=== PATIENT | female | born 1995 | race Hispanic/Latino ===

== ENCOUNTER → 2022-09-18 | Outpatient (CLI) | payer MEDICAID, SELFPAY ==
[2022-09-22 03:06] LABS: Chlamydia By Nucleic Acid AMP Negative (Negative)
[2022-09-22 12:44] LABS: Gonococcus By Nucleic Acid AMP Negative (Negative)
[2022-09-24 21:17] LABS: HPV Reflexed? NOT INDICATED
== END | disposition home or self-care (01) ==
PROVIDERS: Visit Provider Obstetrics & Gynecology
DX: Z34.90 Encounter for supervision of normal pregnancy, unspecified, unspecified trimester (principal)
CPT/HCPCS: 87086; 87491; 87591; 88175; G0145

== ENCOUNTER → 2022-11-12 | Outpatient (CLI) | payer MEDICAID, SELFPAY ==
[2022-11-12 10:55] LABS: Absolute Lymphocyte Count 1.53 X10^3/uL (0.83-4.51); Basophil# 0.03 X10^3/uL; Basophil% 0.5 % (0-1); Eosinophil# 0.07 X10^3/uL; Eosinophils% 1.2 % (0-5); Hematocrit 32.1 % (37-47); Lymphocyte # 1.53 X10^3/ul (0.83-4.51); Lymphocyte % 25.5 % (19-41); Mean Corp Hgb Conc 34.3 g/dL (32-36); Mean Corpuscular Hgb 32.6 pg (27.0-32.0); Mean Corpuscular Volume 95.3 fL (81-99); Mean Platelet Vol. 9.4 fl (6.2-12.0); Monocyte# 0.31 X10^3/uL; Monocyte% 5.2 % (0-10); NRBC Flagged by Analyzer 0 % (0-5); Neutrophil # 4.03 X10^3/uL (2.7-7.7); Neutrophil % 66.9 % (47-70); Platelet Count 292 K/mm3 (150-450); RBC Distribution Width CV 13.6 % (11.6-14.6); RBC Distribution Width SD 47.4 fl (35.1-43.9); Red Blood Count 3.37 M/mm3 (4.2-5.4)
[2022-11-12 12:08] LABS: HIV - WCH Non-Reactive (Nonreactive); Hepatitis B Surface Antigen Non-Reactive (Nonreactive); Hepatitis C Antibody Non-Reactive (Nonreactive); Rubella IgG Reactive (Nonreactive); Syphilis Antibodies Non-reactive
== END | disposition home or self-care (01) ==
LOC: LAB 10:31
PROVIDERS: Visit Provider Obstetrics & Gynecology
DX: Z34.90 Encounter for supervision of normal pregnancy, unspecified, unspecified trimester (principal)
CPT/HCPCS: 36415; 85025; 86703; 86762; 86780; 86803; 86850; 86900; 86901; 87340

== ENCOUNTER → 2022-11-24 | Outpatient (CLI) | payer MEDICAID, SELFPAY ==
--- NOTE | 2022-11-24 15:47 | US_ITS ---
STUDY: SECOND AND THIRD TRIMESTER OBSTETRICAL ULTRASOUND REASON FOR EXAM: Female, 27 years old routine survey, anatomy check LMP: 07/07/2022 TECHNIQUE: Transabdominal TECHNICAL QUALITY: Adequate. PRIOR ULTRASOUND: None. FINDINGS: There is a single intrauterine fetus. The fetus is in an transverse lie with the head on the maternal left side. There is demonstrated cardiac activity with a heart rate of 144 bpm. There is a subjectively normal amniotic fluid volume. The largest amniotic fluid pocket measures 4.1 x 4 cm. The placenta is posterior in location and is not low lying. There are Grade 0 placental changes. The cervix measures 4.0 in length. The adnexal regions are not visualized. BIOMETRY: BPD: 4.46 cm: 19 weeks, 3 days HC: 17.34 cm: 19 weeks, 6 days AC: 14.26 cm: 19 weeks, 4 days FL: 3.15 cm: 19 weeks, 5 days age by current US: 19 weeks, 5 days. CIARRA by current US: 04/15/2023. Estimated weight: 306 grams, +/- 46 grams, 28 %. Age by LMP: 20 weeks, 0 days. CIARRA by LMP: 04/13/2023. ANATOMY: Gender: Female Cranium: Normal lateral ventricles. Normal choroid plexus. Normal cerebellum. Normal cisterna magna. Normal face, nose and lips. Chest: Normal 4-chamber heart. Abdomen/Pelvis: Normal diaphragm. Normal stomach. Normal abdominal wall. Normal cord insertion. Normal 3 vessel cord. Normal kidneys. Normal bladder. Spine: Normal cervical spine. Normal thoracic spine. Normal lumbar spine. Normal sacrum. Extremities: Normal bilateral upper extremities. Normal bilateral lower extremities. US/OB Anatomy w/ Transvaginal IMPRESSION: Single live intrauterine at 19 weeks, 5 days by current ultrasound, with CIARRA of 04/15/2023. Heart rate of 144 bpm. No suspicious sonographic findings. Electronically Signed: Yovanny Granda MD at 8:01 EDT ,
== END | disposition home or self-care (01) ==
LOC: OPUS 15:45
PROVIDERS: Visit Provider Nurse Practitioner Women's Health
DX: Z34.90 Encounter for supervision of normal pregnancy, unspecified, unspecified trimester (principal)
CPT/HCPCS: 76805; 76817

== ENCOUNTER → 2023-01-09 | Outpatient (CLI) | payer MEDICAID, SELFPAY ==
[2023-01-09 15:55] LABS: Absolute Lymphocyte Count 1.71 X10^3/uL (0.83-4.51); Absolute Neutrophil Count 4.2 X10^3/uL (2.0-7.7); Basophil# 0.03 X10^3/uL; Basophil% 0.5 % (0-1); Eosinophil# 0.06 X10^3/uL; Eosinophils% 0.9 % (0-5); Hematocrit 34.5 % (37-47); Hemoglobin 11.2 g/dL (12.0-15.0); Lymphocyte # 1.71 X10^3/ul (0.83-4.51); Lymphocyte % 25.9 % (19-41); Mean Corp Hgb Conc 32.5 g/dL (32-36); Mean Corpuscular Hgb 32.7 pg (27.0-32.0); Mean Corpuscular Volume 100.9 fL (81-99); Mean Platelet Vol. 9.9 fl (6.2-12.0); Monocyte# 0.54 X10^3/uL; Monocyte% 8.2 % (0-10); NRBC Flagged by Analyzer 0 % (0-5); Neutrophil # 4.18 X10^3/uL (2.7-7.7); Neutrophil % 63.1 % (47-70); Platelet Count 315 K/mm3 (150-450); RBC Distribution Width CV 13.1 % (11.6-14.6); RBC Distribution Width SD 48.6 fl (35.1-43.9); Red Blood Count 3.42 M/mm3 (4.2-5.4); White Blood Count 6.6 K/mm3 (4.4-11.0)
[2023-01-09 16:39] LABS: Glucose Challenge Gest 1H 50g 103 mg/dL (70-140)
== END | disposition home or self-care (01) ==
PROVIDERS: Referring Provider Obstetrics & Gynecology; Visit Provider Obstetrics & Gynecology
DX: N89.8 Other specified noninflammatory disorders of vagina (principal)
CPT/HCPCS: 36415; 82950; 85025; 87070; 87205

== ENCOUNTER → 2023-01-21 | Outpatient (CLI) | payer MEDICAID, SELFPAY ==
[2023-01-21 16:38] LABS: HIV - WCH Non-Reactive (Nonreactive); Syphilis Antibodies Non-reactive
[2023-01-23 06:09] LABS: HSV 1 IgG < 0.91 index (0.00-0.90); HSV 2 IgG < 0.91 index (0.00-0.90)
== END | disposition home or self-care (01) ==
PROVIDERS: Referring Provider Obstetrics & Gynecology; Visit Provider Obstetrics & Gynecology
DX: O23.599 Infection of other part of genital tract in pregnancy, unspecified trimester (principal); N76.0 Acute vaginitis; Z3A.00 Weeks of gestation of pregnancy not specified
CPT/HCPCS: 36415; 86695; 86696; 86703; 86780

== ENCOUNTER 2023-02-13 16:50 | Outpatient (CLI) | payer MEDICAID, SELFPAY ==
[2023-02-13 17:04] VITALS: TEMP 36.8
[2023-02-13 17:05] VITALS: BP 97/63; PULSE 88
[2023-02-13 17:09] VITALS: BMI 30.9
--- NOTE | 2023-02-13 17:09 | OB.TRI.PN_ITS ---
Progress Notes Date of Service: 02/13/23 Progress Note: Patient presents for triage evaluation secondary to vaginal bleeding FHT: 140 Moderate variability reactive no decelerations category I tracing [place]: no regular Contractions Assessment and plan: vaginal bleeding no dilation labs drawn and WNL Reactive NST, reassuring maternal and status patient discharged to home to follow- up as scheduled. See problem list details for additional plan information. Charges/Coding Procedures Urinary/Genital 52xxx-59xxx: 18606-50 non-stress test Interp
[2023-02-13 17:38] LABS: Absolute Lymphocyte Count 1.45 X10^3/uL (0.83-4.51); Absolute Neutrophil Count 3.2 X10^3/uL (2.0-7.7); Basophil# 0.03 X10^3/uL; Basophil% 0.6 % (0-1); Eosinophil# 0.07 X10^3/uL; Eosinophils% 1.3 % (0-5); Hematocrit 32.2 % (37-47); Hemoglobin 10.9 g/dL (12.0-15.0); Lymphocyte # 1.45 X10^3/ul (0.83-4.51); Lymphocyte % 27.8 % (19-41); Mean Corp Hgb Conc 33.9 g/dL (32-36); Mean Corpuscular Hgb 33.2 pg (27.0-32.0); Mean Corpuscular Volume 98.2 fL (81-99); Mean Platelet Vol. 9.8 fl (6.2-12.0); Monocyte# 0.42 X10^3/uL; NRBC Flagged by Analyzer 0 % (0-5); Neutrophil % 61.3 % (47-70); Platelet Count 263 K/mm3 (150-450); RBC Distribution Width SD 46.1 fl (35.1-43.9); Red Blood Count 3.28 M/mm3 (4.2-5.4); White Blood Count 5.2 K/mm3 (4.4-11.0)
[2023-02-13 17:45] LABS: Fibrinogen 443 mg/dl (203-444)
== END 2023-02-13 18:15 | disposition home or self-care (01) ==
LOC: WPOUT 16:57 → WP 16:58
PROVIDERS: Referring Provider Obstetrics & Gynecology; Visit Provider Obstetrics & Gynecology
DX: O46.90 Antepartum hemorrhage, unspecified, unspecified trimester (principal); Z3A.00 Weeks of gestation of pregnancy not specified
CPT/HCPCS: 36415; 59025; 59050; 85025; 85384; 86850; 86900; 86901; 99221; G0378

== ENCOUNTER → 2023-02-20 | Outpatient (CLI) | payer MEDICAID, SELFPAY ==
--- NOTE | 2023-02-20 16:05 | VDLE_ITS ---
Reason For Study: Left groin swelling Procedure LEFT This is a venous duplex using B-mode, color GSV is normal. flow and spectral Doppler. CFV is compressible, spontaneous, phasic, Exam performed in department. competent, and demonstrates normal A preliminary report was called and/or faxed augmentation. to Dr. Marshall. FV is compressible, spontaneous, phasic, competent and demonstrates normal augmentation. POP V is compressible, spontaneous, phasic, competent and demonstrates normal augmentation. T/P Trunk is compressible. PTV is compressible. LT PerV is compressible. Vascularized structure noted in the left groin area that measures 1.87 x 2.67 x 4.99 cm. VL/Venous Duplex US, Unilateral Interpretation Summary There is no evidence of left lower extremity deep vein thrombosis. Left great s aphenous vein appears patent and compressible segmentally. 1.87 x 2.67 x 4.99 cm left groin vasculari zed structure Ordering Physician: Karrie Roldan Performed By: Judy Medrano RVT
== END | disposition home or self-care (01) ==
PROVIDERS: Visit Provider Obstetrics & Gynecology
DX: M79.605 Pain in left leg (principal)
CPT/HCPCS: 93971

== ENCOUNTER → 2023-03-19 | Outpatient (CLI) | payer MEDICAID, SELFPAY | END | disposition home or self-care (01) | LOC: LABSPEC 16:48 | PROVIDERS: Referring Provider Obstetrics & Gynecology; Visit Provider Obstetrics & Gynecology | DX: O09.90 Supervision of high risk pregnancy, unspecified, unspecified trimester (principal); Z3A.00 Weeks of gestation of pregnancy not specified | CPT/HCPCS: 87081 ==

== ENCOUNTER → 2023-04-02 | Outpatient (CLI) | payer MEDICAID, SELFPAY ==
--- NOTE | 2023-04-02 19:20 | US_ITS ---
STUDY: SUPERFICIAL ULTRASOUND - LEFT INGUINAL AREA REASON FOR EXAM: Female, 27 years old. left inguinal pain/ palp -- DVT previously ruled out/possible lymph node TECHNIQUE: A superficial ultrasound was performed with real-time and static rooney-scale imaging. COMPARISON: None. FINDINGS: Multiple longitudinal and transverse ultrasound images of the left ankle area demonstrates multiple dilated blood vessels possibly consistent with pelvic varices. Correlation with CT abdomen and pelvis with contrast after delivery would be useful. 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 Electronically Signed: Zen Castro MD at 20:41 EDT ,
== END | disposition home or self-care (01) ==
LOC: US 19:20
PROVIDERS: Referring Provider Obstetrics & Gynecology; Visit Provider Obstetrics & Gynecology
DX: R10.9 Unspecified abdominal pain (principal)
CPT/HCPCS: 76882

== ENCOUNTER → 2023-04-16 | Outpatient (CLI) | payer MEDICAID, SELFPAY ==
[2023-04-16 18:04] LABS: ROM Internal Control Test YES-OK TO RESULT pt. (Internal QC); ROM Patient Test Negative (Negative); Record Kit Lot#, ROM+ K1374
== END | disposition home or self-care (01) ==
PROVIDERS: Visit Provider Obstetrics & Gynecology
DX: O26.899 Other specified pregnancy related conditions, unspecified trimester (principal); N89.8 Other specified noninflammatory disorders of vagina; Z3A.00 Weeks of gestation of pregnancy not specified
CPT/HCPCS: 84112

== ENCOUNTER 2023-04-19 19:00 | Inpatient (IN) | payer MEDICAID, SELFPAY ==
[2023-04-19 19:35] VITALS: BP 102/63; PULSE 77
[2023-04-19 19:37] VITALS: TEMP 36.7
[2023-04-19 19:39] VITALS: PULSE 77; O2SAT 98
[2023-04-19 20:09] VITALS: BMI 32.5
[2023-04-19] MEDS: Lactated Ringers 1,000 ML 50 ML IV (20:10)
[2023-04-19 20:37] LABS: Absolute Lymphocyte Count 1.47 X10^3/uL (0.83-4.51); Basophil# 0.04 X10^3/uL; Basophil% 0.8 % (0-1); Eosinophil# 0.14 X10^3/uL; Eosinophils% 2.7 % (0-5); Hematocrit 36.7 % (37-47); Lymphocyte # 1.47 X10^3/ul (0.83-4.51); Lymphocyte % 28.8 % (19-41); Mean Corp Hgb Conc 32.7 g/dL (32-36); Mean Corpuscular Hgb 32.3 pg (27.0-32.0); Mean Corpuscular Volume 98.9 fL (81-99); Mean Platelet Vol. 10.9 fl (6.2-12.0); Monocyte# 0.39 X10^3/uL; Monocyte% 7.6 % (0-10); NRBC Flagged by Analyzer 0 % (0-5); Neutrophil # 3.03 X10^3/uL (2.7-7.7); Neutrophil % 59.5 % (47-70); Platelet Count 253 K/mm3 (150-450); RBC Distribution Width CV 13.2 % (11.6-14.6); RBC Distribution Width SD 47.8 fl (35.1-43.9); Red Blood Count 3.71 M/mm3 (4.2-5.4); White Blood Count 5.1 K/mm3 (4.4-11.0)
[2023-04-19] MEDS: miSOPROStol 25 MCG TABLET VAGINAL (20:45)
[2023-04-19 21:57] LABS: Syphilis Antibodies Non-reactive
[2023-04-20] VITALS (49 sets, daily range): BP systolic 76–123; BP diastolic 42–73; PULSE 51–103; TEMP 36–37.8; O2SAT 94–100
[2023-04-20] MEDS: miSOPROStol 50 MCG TABLET VAGINAL (00:21)
[2023-04-20] MEDS: DiphenhydrAMINE 25 MG Capsule 50 MG PO (01:32)
[2023-04-20] MEDS: 0.9% Saline Lock 10 ML Syringe IV ×3 (06:00→22:22)
[2023-04-20] MEDS: LACTATED RINGERS 500 ML 999 ML IV ×4 (06:25→20:13)
[2023-04-20] MEDS: Oxytocin 15 Units/NS 250ml 15 UNITS/250 ML IV.SOLN 2 UNITS IV (09:49)
[2023-04-20] MEDS: fentaNYL-bupivacaine (epidural) 100 ML BAG EPIDURAL ×2 (12:21→16:32)
[2023-04-20] MEDS: Lactated Ringers 1,000 ML 200 ML IV ×2 (14:47→19:56)
[2023-04-21] VITALS (27 sets, daily range): BP systolic 75–103; BP diastolic 42–60; PULSE 66–102; RESP 15–16; TEMP 36.1–39.1; O2SAT 96–99
[2023-04-21] MEDS: Oxytocin 10 UNITS/ML Vial IM (02:57)
[2023-04-21] MEDS: Oxytocin 15 Units/NS 250ml 15 UNITS/250 ML IV.SOLN 83 UNITS IV (02:59)
--- NOTE | 2023-04-21 03:15 | HP.PCM.OB_ITS ---
HPI - General General Date of Admission: 04/19/23 HPI Narrative IBETH EDMOND, is a 28 F who presents for IOL secondary to postdates. no vb lof good fm no regular ctx Maternal Data Information CIARRA Calculator Estimated Delivery Date Method Current WG Current Estimate 04/12/23 LMP (Certain) 41w 2d PFSH PFSH Medical History (Updated 04/19/23 @ 20:25 by Amairani Ann) Breast lump Left inguinal pain Pain in left leg Varicose veins during Home Medications multivit-min no.71-iron fum 28 mg-folate no.1 1 mg-dha 300 mg capsule (PNV- [place]) 1 cap PO DAILY 08/28/22 [History Last Taken 04/18/23] Allergy/AdvReac Type Severity Reaction Status Date / Time No Known Allergies Allergy Verified 04/19/23 20:06 Family History Father Diabetes Type II Surgical History Hx of appendectomy Social History adopted: No household members: spouse housing: house current occupational status: unemployed current occupational exposures/hazards: No pets and animals: Yes pets and animals: dog(s) history of recent travel: Yes ([place]) out of state: Yes out of country: No sexually active: Yes Smoking Status: Never smoker alcohol intake: never substance use type: does not use well-balanced diet: about half the time caffeine: Yes Type: carbonated beverages Number of servings: 1 eating out: 1-3 times/week during the past year weight has: remained stable what type of physical activity do you participate in: none olga/samaritan: None seatbelt use: always do you feel safe at home: Yes additional social history: [employer]- [employer] work History 1 Elective abortions Hx Para 0 Spontaneous abortions Hx # Term Pregnancies Ectopic pregnancies Hx # Pregnancies Multiple births # of living children Visit Details Expected Delivery Route/Plan Labor Preferences- CB/BF classes: encouraged labor support person: Darian wynn intervention preferences: pain management options preferred: [] cut cord/dad catch: [] : [] PP control planned: discussed possible routes of delivery and associated risks: [] special requests: [] Plans Covid status: unvaccinated Flu vaccine: discussed Tdap vaccine: [] Rhogam: n.a LARC form signed: completed, declines larc movement and labor precautions reviewed. Problem list reviewed and updated with the most current plan of care details and appropriate orders placed. Relevant counseling for the gestational age provided. Continue routine care and follow up unless otherwise noted in visit notes/problem list details OB Flowsheet Initial Weight: Not Recorded Date -?-?-?-?-?-?-?-?-?-?-?-?- EGA Weight BP Urine Prot -?-?-?-?-?-?-?-?-?-?-?-?- Glucose FHR FuHt Pres Dilation -?-?-?-?-?-?-?-?-?-?-?-?- Effaced St Visit Note 09/18/22 -?-?-?-?-?-?-?-?-?-?-?-?- 10w 4d 128 lb 4 oz 104/75 -?-?-?-?-?-?-?-?-?-?-?-?- 168 -?-?-?-?-?-?-?-?-?-?-?-?- JV- Single live IUP consistent with 10 weeks 6 days and LMP. Declines NIPT and carrier. New to [facility], moved from [place]. 11/12/22 -?-?-?-?-?-?-?--?-?-?-?-?- 18w 3d 134 lb 94/60 Negative -?-?-?-?-?-?-?-?-?-?-?-?- Negative 154 -?-?-?-?-?-?-?-?-?-?-?-?- MH-No Vb, LOF. F eels well, nausea improved. Anatomy US ordered. 12/12/22 -?-?-?-?-?-?-?-?-?-?-?-?- 22w 5d 142 lb 4 oz 104/67 Nega tive -?-?-?-?-?-?-?-?-?-?-?-?- Negative 140 -?-?-?-?-?-?-?-?-?-?-?-?- SM- no vb lof go od fm no regular ctx 01/09/23 -?-?-?-?-?-?-?-?-?-?-?-?- 26w 5d 148 lb 6 oz 104/70 Nega tive -?-?-?-?-?-?-?-?--?-?-?-?- Negative 145 29 -?-?-?-?-?-?-?-?-?-?-?-?- JV- pt has burni ng and irritation of the vaginal area. on exam the vaginal mucosa is erythematous and edematous and there is a white discharge present. she has already tried monistat. will try diflucan. vaginal culture ordered. 01/21/23 -?-?-?-?-?-?-?-?-?-?-?-?- 28w 3d 151 lb 3 oz 109/70 Nega tive -?-?-?-?-?-?-?-?-?-?-?-?- Negative 150 30 -?-?-?-?-?-?-?-?-?-?-?-?- JV- vaginal disc harge resolved. no complaints today. normal GCT. 02/06/23 -?-?-?-?-?-?-?-?-?-?-?-?- 30w 5d 151 lb 4 oz 109/73 Nega tive -?-?-?-?-?-?-?-?-?-?-?-?- Negative 148 30 -?-?-?-?-?-?-?-?-?-?-?-?- LC- no concerns. good fm, no lof/vb/ctx. reviewed labor pain options LC- no concerns. good fm, no lof/vb/ctx. reviewed labor pain options. larc signed 02/20/23 -?-?-?-?--?-?-?-?-?-?-?-?- 32w 5d 154 lb 154 lb 101/64 101/64 Negative -?-?-?-?-?-?-?-?-?-?-?-?- Negative 145 32 -?-?-?-?-?-?-?-?-?-?-?-?- JV- pt complains of pain and swelling of the left inguinal area. on exam she is extremely tender and guarding of the area. will order scan to rule out clot 03/06/23 -?-?-?-?-?-?-?-?-?-?-?-?- 34w 5d 156 lb 4 oz 112/66 Nega tive -?-?-?-?-?-?-?-?-?-?-?-?- Negative 140 35 -?-?-?-?-?-?-?-?-?-?-?-?- kw-+ fm. no vb/l of/ctx. AG on GBS swab. US results reviewed from doppler. 03/19/23 -?-?-?-?-?-?-?-?-?-?-?-?- 36w 4d 159 lb 99/66 Negative -?-?-?-?-?-?-?-?-?-?-?-?- Negative 143 37 -?-?-?-?-?-?-?-?-?-?-?-?- JV- no large sonal h of fluid,or dec fm. wants doc only for delivery. gbs collected. 03/27/23 -?-?-?-?-?-?-?-?-?-?-?-?- 37w 5d 159 lb 4 oz 99/66 Nega tive -?-?-?-?-?-?-?-?-?-?-?-?- Negative 140 38 Cephalic 0 -?-?-?-?-?-?-?-?-?-?-?-?- Sm- no vb lof go od fm no regular ctx 04/03/23 -?-?-?-?-?-?-?-?-?-?-?-?- 38w 5d 160 lb 96/64 -?-?-?-?-?-?-?-?-?-?-?-?- 135 38 Cephalic 1 -?-?-?-?-?-?-?-?-?-?-?-?- 50 -3 JV- no lof , vaginal bleeding, or dec fm. no complaints. labor precautions discussed. 04/10/23 -?-?-?-?-?-?-?-?-?-?-?-?- 39w 5d 161 lb 6 oz 103/66 Nega tive -?-?-?-?-?-?-?-?-?-?--?-?- Negative 140 37 Cephalic 1 -?-?-?-?-?-?-?-?-?-?-?-?- 30 -3 JV- KWABENA sh owed greatest pocket was 8 cm. we discussed IOL however not scheduled as of yet. will bring back on thr next week and aim for thursday or thursday night for cytotec if no cervical change. pt is doc only. 04/16/23 -?-?-?-?-?-?-?-?-?-?-?-?- 40w 4d 162 lb 4 oz 103/70 Nega tive -?-?-?-?-?-?-?-?-?-?-?-?- Negative 147 39 Cephalic 0 .5 -?-?-?-?-?-?-?-?-?-?-?-?- 50 -2 JV- pt sta yoni that she experienced one gush of fluid yesterday that did not continue. no bleeding or persistent contractions. rom plus ordered. IOL set up for thursday, NST FHR Rate Baby A Baseline: 130 Variability:: Moderate Accelerations:: 15 x 15 Decelerations:: None NST Reactive:: Yes FHR Category:: Category I Uterine Activity:: irregular ROS Constitutional Constitutional: Reports systems reviewed and no addt'l complaints, except as documented Eyes Eyes: Denies change in vision ENT HEENT: Reports systems reviewed and no addt'l complaints, except as documented; Denies headache(s) Cardiovascular Cardiovascular: Reports systems reviewed and no addt'l complaints, except as documented; Denies chest pain or dyspnea Respiratory/Chest Respiratory/Chest: Reports systems reviewed and no addt'l complaints, except as documented Gastrointestinal Gastrointestinal: Reports systems reviewed and no addt'l complaints, except as documented; Denies abdominal pain Genitourinary Genitourinary: Reports systems reviewed and no addt'l complaints, except as documented, contractions Details: present (irregular) and movement Details: present; Denies dysuria or genital lesions Musculoskeletal Musculoskeletal: Reports systems reviewed and no addt'l complaints, except as documented Neurologic Neurologic: Reports systems reviewed and no addt'l complaints, except as documented Endocrine Endocrinology: Reports systems reviewed and no addt'l complaints, except as documented Vital Signs Vital Signs Vital Signs: 04/20/23 04:04 04/20/23 04:04 04/20/23 04:04 Temperature Temperature Source Pulse Rate 64 Blood Pressure 87/52 L BP Systolic 87 BP Diastolic 52 Pulse Ox 96 04/20/23 04:04 04/20/23 04:06 04/20/23 04:06 Temperature 98.1 F Temperature Source Pulse Rate 65 Blood Pressure 86/50 L BP Systolic 86 BP Diastolic 50 Pulse Ox 04/20/23 04:23 04/20/23 04:23 04/20/23 06:25 Temperature Temperature Source Pulse Rate 65 Blood Pressure 96/48 L 95/61 BP Systolic 96 95 BP Diastolic 48 61 Pulse Ox 04/20/23 06:25 04/20/23 07:21 04/20/23 07:22 Temperature 97.9 F Temperature Source Pulse Rate 75 Blood Pressure 91/51 L BP Systolic 91 BP Diastolic 51 Pulse Ox 04/20/23 07:22 04/20/23 07:21 04/20/23 07:21 Temperature Temperature Source Temporal Pulse Rate 69 Blood Pressure BP Systolic BP Diastolic Pulse Ox 96 04/20/23 07:21 04/20/23 09:55 04/20/23 09:56 Temperature 97.9 F 98.1 F Temperature Source Pulse Rate Blood Pressure 83/54 L BP Systolic 83 BP Diastolic 54 Pulse Ox 04/20/23 09:56 04/20/23 09:56 04/20/23 09:55 Temperature Temperature Source Temporal Pulse Rate 69 Blood Pressure BP Systolic BP Diastolic Pulse Ox 94 04/20/23 09:56 04/20/23 09:56 04/20/23 09:55 Temperature 98.0 F Temperature Source Pulse Rate 66 Blood Pressure BP Systolic BP Diastolic Pulse Ox 95 04/20/23 11:01 04/20/23 11:01 04/20/23 11:01 Temperature 98.4 F Temperature Source Pulse Rate 70 Blood Pressure 89/53 L BP Systolic 89 BP Diastolic 53 Pulse Ox 04/20/23 11:01 04/20/23 11:01 04/20/23 11:01 Temperature Temperature Source Temporal Pulse Rate Blood Pressure BP Systolic BP Diastolic Pulse Ox 97 97 04/20/23 11:01 04/20/23 12:06 04/20/23 12:06 Temperature 98.4 F 97.2 F L Temperature Source Pulse Rate 59 L Blood Pressure BP Systolic BP Diastolic Pulse Ox 04/20/23 12:06 04/20/23 12:11 04/20/23 12:11 Temperature Temperature Source Pulse Rate 68 Blood Pressure BP Systolic BP Diastolic Pulse Ox 100 100 04/20/23 12:12 04/20/23 12:12 04/20/23 12:16 Temperature Temperature Source Pulse Rate 72 64 Blood Pressure 106/73 BP Systolic 106 BP Diastolic 73 Pulse Ox 04/20/23 12:16 04/20/23 12:18 04/20/23 12:18 Temperature Temperature Source Pulse Rate 63 Blood Pressure 101/58 L BP Systolic 101 BP Diastolic 58 Pulse Ox 98 04/20/23 12:21 04/20/23 12:21 04/20/23 12:23 Temperature Temperature Source Pulse Rate 74 Blood Pressure 92/50 L BP Systolic 92 BP Diastolic 50 Pulse Ox 97 04/20/23 12:23 04/20/23 12:26 04/20/23 12:26 Temperature Temperature Source Pulse Rate 80 78 Blood Pressure BP Systolic BP Diastolic Pulse Ox 96 04/20/23 12:27 04/20/23 12:27 04/20/23 12:31 Temperature Temperature Source Pulse Rate 77 80 Blood Pressure 87/52 L BP Systolic 87 BP Diastolic 52 Pulse Ox 04/20/23 12:31 04/20/23 12:34 04/20/23 12:34 Temperature Temperature Source Pulse Rate 76 Blood Pressure 86/51 L BP Systolic 86 BP Diastolic 51 Pulse Ox 96 04/20/23 12:36 04/20/23 12:36 04/20/23 12:39 Temperature Temperature Source Pulse Rate 76 Blood Pressure 89/52 L BP Systolic 89 BP Diastolic 52 Pulse Ox 96 04/20/23 12:39 04/20/23 12:41 04/20/23 12:41 Temperature Temperature Source Pulse Rate 74 72 Blood Pressure BP Systolic BP Diastolic Pulse Ox 97 04/20/23 12:42 04/20/23 12:42 04/20/23 13:22 Temperature Temperature Source Pulse Rate 75 Blood Pressure 88/51 L 76/42 L BP Systolic 88 76 BP Diastolic 51 42 Pulse Ox 04/20/23 13:22 04/20/23 13:21 04/20/23 13:33 Temperature Temperature Source Pulse Rate 51 L Blood Pressure 87/54 L BP Systolic 87 BP Diastolic 54 Pulse Ox 94 04/20/23 13:33 04/20/23 13:38 04/20/23 13:38 Temperature Temperature Source Pulse Rate 54 L 67 Blood Pressure 86/51 L BP Systolic 86 BP Diastolic 51 Pulse Ox 04/20/23 13:43 04/20/23 13:43 04/20/23 13:48 Temperature Temperature Source Pulse Rate 53 L Blood Pressure 89/53 L 84/51 L BP Systolic 89 84 BP Diastolic 53 51 Pulse Ox 04/20/23 13:48 04/20/23 13:49 04/20/23 14:35 Temperature 96.8 F L Temperature Source Pulse Rate 60 Blood Pressure 86/51 L BP Systolic 86 BP Diastolic 51 Pulse Ox 04/20/23 14:35 04/20/23 14:35 04/20/23 14:35 Temperature Temperature Source Pulse Rate 61 62 Blood Pressure BP Systolic BP Diastolic Pulse Ox 95 04/20/23 14:35 04/20/23 14:35 04/20/23 16:34 Temperature 97.0 F L Temperature Source Tympanic Pulse Rate Blood Pressure 79/46 L BP Systolic 79 BP Diastolic 46 Pulse Ox 04/20/23 16:34 04/20/23 16:33 04/20/23 16:34 Temperature 97.7 F L Temperature Source Pulse Rate 58 L Blood Pressure 76/44 L BP Systolic 76 BP Diastolic 44 Pulse Ox 04/20/23 16:34 04/20/23 16:44 04/20/23 16:44 Temperature Temperature Source Pulse Rate 61 62 Blood Pressure 88/61 L BP Systolic 88 BP Diastolic 61 Pulse Ox 04/20/23 16:44 04/20/23 16:44 04/20/23 17:36 Temperature 97.2 F L Temperature Source Temporal Pulse Rate Blood Pressure 88/60 L BP Systolic 88 BP Diastolic 60 Pulse Ox 04/20/23 17:36 04/20/23 17:36 04/20/23 18:42 Temperature 97.3 F L Temperature Source Pulse Rate 68 Blood Pressure 85/49 L BP Systolic 85 BP Diastolic 49 Pulse Ox 04/20/23 18:42 04/20/23 18:42 04/20/23 18:42 Temperature 98.4 F Temperature Source Pulse Rate 73 75 Blood Pressure BP Systolic BP Diastolic Pulse Ox 04/20/23 18:42 04/20/23 19:15 04/20/23 19:16 Temperature 98.4 F Temperature Source Pulse Rate Blood Pressure 102/59 L BP Systolic 102 BP Diastolic 59 Pulse Ox 100 04/20/23 19:16 04/20/23 19:15 04/20/23 20:02 Temperature Temperature Source Pulse Rate 78 Blood Pressure 79/53 L BP Systolic 79 BP Diastolic 53 Pulse Ox 99 04/20/23 20:02 04/20/23 20:01 04/20/23 20:45 Temperature 98.1 F Temperature Source Pulse Rate 67 Blood Pressure 87/55 L BP Systolic 87 BP Diastolic 55 Pulse Ox 04/20/23 20:45 04/20/23 21:06 04/20/23 21:06 Temperature Temperature Source Pulse Rate 71 80 Blood Pressure 94/60 BP Systolic 94 BP Diastolic 60 Pulse Ox 04/20/23 21:06 04/20/23 21:06 04/20/23 22:19 Temperature 98.6 F Temperature Source Pulse Rate 102 H Blood Pressure BP Systolic BP Diastolic Pulse Ox 100 04/20/23 22:19 04/20/23 22:20 04/20/23 22:20 Temperature 100.0 F H Temperature Source Pulse Rate Blood Pressure 104/59 L BP Systolic 104 BP Diastolic 59 Pulse Ox 100 04/20/23 22:20 04/20/23 23:03 04/20/23 23:03 Temperature 99.1 F Temperature Source Pulse Rate 80 Blood Pressure 123/63 H BP Systolic 123 BP Diastolic 63 Pulse Ox 04/20/23 23:03 04/21/23 00:04 04/21/23 00:05 Temperature 101.5 F H Temperature Source Pulse Rate 103 H Blood Pressure 98/53 L BP Systolic 98 BP Diastolic 53 Pulse Ox 04/21/23 00:05 04/21/23 00:39 04/21/23 00:39 Temperature 100.4 F H Temperature Source Oral Pulse Rate 76 Blood Pressure BP Systolic BP Diastolic Pulse Ox 04/21/23 00:54 04/21/23 00:56 04/21/23 00:56 Temperature Temperature Source Oral Pulse Rate 82 Blood Pressure 103/52 L BP Systolic 103 BP Diastolic 52 Pulse Ox 04/21/23 00:54 04/21/23 00:54 04/21/23 02:20 Temperature 100.3 F H Temperature Source Pulse Rate Blood Pressure 101/58 L BP Systolic 101 BP Diastolic 58 Pulse Ox 99 04/21/23 02:20 04/21/23 02:20 04/21/23 02:20 Temperature 102.4 F H Temperature Source Pulse Rate 73 Blood Pressure BP Systolic BP Diastolic Pulse Ox 96 04/21/23 02:20 04/21/23 02:20 Temperature 100.2 F H Temperature Source Oral Pulse Rate Blood Pressure BP Systolic BP Diastolic Pulse Ox Weight Weight: 161 lb Body Mass Index (BMI) 32.5 Physical Exam Const alert, oriented x3, no apparent distress and healthy appearing HEENT normocephalic and moist oral mucous membranes Head and Scalp: atraumatic Neck full ROM, no lymphadenopathy, supple and thyroid normal General: trachea midline Lymph Lymphatic: no lymphadenopathy noted Chest inspection of chest normal Resp normal respiratory effort Cardio regular rate GI normal to inspection, nondistended, normoactive bowel sounds, soft to palpation and non-tender Inspection: gravid external exam normal Manual OB Exam: estimated gestational size appropriate, presentation cephalic, dilated, effaced and station Extremity normal to inspection General Extremity: Negative for edema Skin no rashes or lesions noted Neuro no focal motor deficits and deep tendon reflexes 2+ bilaterally Motor Exam: strength 5/5 throughout and clonus absent Psych mental status grossly normal Labs Labs Labs: Blood Type O POSITIVE Antibody Screen NEGATIVE Hct 36.7 % (37-47) L Hgb 12.0 g/dL (12.0-15.0) Obstetrics US Syphilis Total Ab Non-reactive Rubella IgG Antibody Reactive (Nonreactive) Hep Bs Antigen Non-Reactive (Nonreactive) Chlamydia DNA ([facility]) Negative (Negative) Neisseria gonorrhoeae DNA ([facility]) Negative (Negative) HIV 1&2 Antibody Non-Reactive (Nonreactive) Glucose 1 Hr 50 gm 103 mg/dL (70-140) Miscellaneous Test Assessment & Plan (1) : QUALIFIERS: Weeks of gestation: 38 weeks Qualified Code(s): Z3A.38 - 38 weeks gestation of COMMENT: GBS neg. anatomy nl, declines genetic & ntd, carrier testing (2) Supervision of high risk , antepartum: COMMENT: PRR , CIARRA 04/12/23 girl Laura Darian wants doc only for delivery. PLAN: Plan admit cytotec then pitocin and arom clear fluid
--- NOTE | 2023-04-21 03:16 | EX.PCM.OBRPT ---
Assessment & Plan (1) Supervision of high risk , antepartum: COMMENT: PRR , CIARRA 04/12/23 girl Laura Darian wants doc only for delivery. (2) : QUALIFIERS: Weeks of gestation: 38 weeks Qualified Code(s): Z3A.38 - 38 weeks gestation of COMMENT: GBS neg. anatomy nl, declines genetic & ntd, carrier testing (3) Vaginal delivery: COMMENT: SM IOL postdates girl laura 41 elevated temp given antibiotics in labor mec pushed 4 hours (4) Maternal fever affecting labor: COMMENT: amp and gent given Maternal Data Information CIARRA Calculator Estimated Delivery Date Method Current WG Current Estimate 04/12/23 LMP (Certain) 41w 2d Vaginal Delivery Operative Information Date of Procedure: 04/21/23 Pre-Operative Diagnosis: see a/p diagnoses Post-Operative Diagnosis: same Surgery / Procedure Performed: Spontaneous Vaginal Delivery Type of Anesthesia: Epidural Special Medications: none Estimated Blood Loss: 400 Fluids Replaced: crystalloid Findings Description of Procedure: patient presented for IOL secondary to postdates, underwent cytotec then pitcoin IOL, arom for clear fluid. about 2 hours into pushing, patient developed an elevated temp and had persistent minimal variability, recurrent periodic mild variables which resolved when she wasn't pushing, elevated heart rate, so ampicillin and gentamicin were started. Patient continued pushing with good progress and after 4 hours, delivered the head in the JEREMY presentation. The head was delivered atraumatically and a loose nuchal cord ?1 was identified and the infant delivered through without complication. meconium was noted and peds called for. The anterior and posterior shoulders delivered without complication followed by the rest of the and the was placed on the maternal abdomen. Delayed cord clamping was employed for approximately 60 seconds. Cord was clamped and cut and gentle traction was applied to the cord and the placenta delivered spontaneously immediately following it was noted to be intact with three-vessel cord. The perineum and vagina were inspected and noted to have a degree perineal laceration which was repaired in the usual fashion with 3-0 vicryl rapide. EBL was 400. Patient and tolerated delivery well. Amniotic Fluid Description: Thick meconium Placental Delivery Description: Spontaneous Placenta Disposition: [facility] Cord Vessel Description: 3 Vessels Cord Entanglement: None Delayed Cord Clamping: Yes Post Vaginal Delivery Medications Given After Delivery: - (Pitocin) Episiotomy Description: None Complication Complications: None Procedures Urinary/Genital 52xxx-59xxx: [id number] Vaginal Delivery+PP Care([facility])
--- NOTE | 2023-04-21 03:21 | PCM.DC ---
Discharge Instructions Diet Discharge Diet: No restrictions Activity Discharge Activity: Return to Normal Activity, May Not Drive (while taking narcotic pain medications.) and May Shower May resume sexual activity in: 4-6 weeks Dressing / Incision Call your doctor if your incision/area has: Continuous Slow Oozing, Sudden Increased Bleeding, Increased Pain/ Swelling, Increased Redness and Foul Smelling Discharge Follow Up Care Please Follow Up With: Renee Marshall MD When: Call [phone] to make an appointment with your doctor in 6 weeks. If you had elevated blood pressure or 4th degree laceration, you will need to be seen in 2 weeks. Test Results: Test results from this visit will be discussed in further detail at your follow-up appointment, if applicable. Discharge Plan Admission Admit Date/Time: 04/19/23 19:00 Attending Provider: Renee Marshall Primary Care Provider: Care Physician,No Primary Discharge Orders/Prescriptions Prescriptions: No Action PNV-[place] 28-1-300 mg capsule 1 cap PO DAILY Referrals / Follow Up: Care Physician,No Primary [Primary Care Provider] -
[2023-04-21] MEDS: Acetaminophen 500 MG Tablet 1000 MG PO (03:41)
[2023-04-21] MEDS: LACTATED RINGERS 1,000 ML 500 ML IV (04:38)
--- NOTE | 2023-04-21 04:48 | NURSING ---
this RN into room, was under warmer for IV placement and blood cultures. FOB noted to be pacing the room, sighing frequently, back turned away from and was anxiously clapping hands. fob then sat down on couch, held head in hands and was quickly bouncing legs. RN asked fob if he needed anything and he replied its just hard. emotional support provided. pt resting comfortably in bed. will continue to monitor
[2023-04-21] MEDS: Naproxen 500 MG Tablet PO ×2 (08:32→19:40)
[2023-04-21] MEDS: 0.9% Saline Lock 10 ML Syringe IV (08:35)
[2023-04-22 03:48] VITALS: BP 97/55; PULSE 62; RESP 18; TEMP 36.1
[2023-04-22] MEDS: Acetaminophen 500 MG Tablet 1000 MG PO (03:50)
--- NOTE | 2023-04-22 07:26 | PN.OBGYN_ITS ---
Subjective Subjective Patient doing well without complaints. Tolerating PO. Ambulating and voiding without difficulty. Feeding concerns, seeing LC, currently using nipple shield and supplementing with formula, is considering transitioning to formula when she is discharged. Denies chest pain, shortness of breath, calf pain/swelling, feve rs, chills, lightheadedness. Objective Data Objective Data Vital Signs: Vital Signs Temp Pulse Resp BP Pulse Ox O2 Del Method 97 F L 62 18 97/55 L 96 Room Air 04/22/23 03:48 04/22/23 03:48 04/22/23 03:48 04/22/23 03:48 04/21/23 02:20 04/22/23 03:48 Oxygen Delivery Method Room Air Weight: 161 lb Body Mass Index (BMI) 32.5 Intake & Output: Intake and Output for Last 24 Hours 04/20/23 04/21/23 04/22/23 23:59 23:59 23:59 Intake Total 3786.52 / 3786.52 2598.33 / 2598.33 Output Total 850 / 850 500 / 500 Balance 2936.52 / 2936.52 2098.33 / 2098.33 Lab / Micro Data 04/19/23 20:10 Physical Exam Const alert and no apparent distress Chest inspection of chest normal Nipple/Areola: nipples/areola normal Resp normal respiratory effort and no retractions Effort and Inspection: able to speak in complete sentences Cardio regular rate and regular rhythm GI GI Narrative: fundus firm, below u, no clots. Extremity normal to inspection, no calf tenderness and no pedal edema Skin no rashes or lesions noted Psych mental status grossly normal Assessment & Plan (1) Maternal fever affecting labor: COMMENT: amp and gent given during pushing, additional dose of amp x 1 . monitor. no fevers x24 hours. (2) Vaginal delivery: COMMENT: SM IOL postdates girl julianna 41 elevated temp given antibiotics in labor mec pushed 4 hours PLAN: Plan s/p PPD # 1 1. routine post delivery care 2. breast feeding- support given 3. rh positive 4. rubella immune 5. stable for d/c today
[2023-04-22 07:33] VITALS: BP 89/58; PULSE 70; RESP 16; TEMP 36.3
--- NOTE | 2023-04-22 08:03 | NURSING ---
0745-states a little burning when she voids, using spray bottle states this helps
[2023-04-22 14:41] VITALS: BP 97/55; PULSE 70; RESP 16; TEMP 36.3
--- NOTE | 2023-04-22 16:13 | CASEMGMT ---
Social Work Assessment Labor and Delivery Unit Patient Address:[address] [place] [address] [address], [place] [id number] Phone number: [phone] Date of Referral: 04/21/23 Time of Referral:? 450 Referred By: Dr. Renee Marshall Date of Intervention: ??04/22/23 Time of Intervention:? 1230 Reason for Referral:? Other, resources Social work completed chart review and acknowledges social work consult. Sw met with mother of baby (JUAN Pelaez) at bedside, introduced self and explained sw role during admission. Sw provided support, answered questions and assessed for any needs or concerns YUE may have at this time. Also in room during sw assessment was maternal grandma. MOB said it was ok to meet with her and ask questions with grandmother present. History obtained from: medical records and mother of baby (YUE)??? Household composition: Currently residing at the family home is YUE and INGRIS and now baby girl. Patient's parent/guardian status:?YUE states that she and INGRIS have known each other since they were little kids, but have only been together for 6 years. YUE states that she is safe at home and denied domestic violence or intimate partner violence. This is first baby for both parents. Medical History: YUE is 1, para 0 now 1. YUE received routine care with [place] throughout her . YUE delivered baby via vaginal delivery on 04/21/23. Baby girl, Laura, was born weighing 8lb 6oz and her apgars were 6 and 9 at one and five minutes of life respectfully. Educational Status:?YUE states that she graduated from high school and has a diploma- no college education.INGRIS finished 10th grade. Financial Status: YUE is unemployed at this time. 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 MOB states that INGRIS is able to take two weeks off of work now that the baby has been born. Infant Supplies:?MOB states that they have been able to obtain all necessary baby items for baby including car seat, safe sleep space, clothes, diapers, wipes and a breast pump. Childcare/Caregiver(s):? YUE is the primary caregiver to baby. MOB states that she also has her mother to help her at home when she needs help. Transportation:??MOB states that they have reliable transportation. NO barriers to transportation at this time. Programs/Agencies Involved: ?Family is connected to Medicaid insurance through [facility]. No other linkage at this time. Sw encouraged MOB to get connected to WIC to help with nutrition needs since she is breast feeding and if she were to ever need to supplement with formula they would be able to assist with that. Children Services/Legal Issues:??? No former involvement, no issues or concerns warranting referral to be made at this time. Behavioral Health Issues: ??Mental Health History:??MOB states that she and FOB do not have a mental health history. Sw educated MOB on signs and symptoms of baby blues and post depression. MOB expressed understanding. MOB states that FOB is very supportive of her physical and emotional/ mental well being. ? Substance Use History: MOB denies substance use prior to and during . ?? Family History:??MOB states that neither family has a substance use or mental health history. ??? Drug Screens: No drug screens observed in chart review. Family/Social Stressors:? MOB denies any stressors, issues or concerns at this time. Support Systems: Maternal grandma present and holding baby, observed to care for her in loving manner. MOB states that both sets of parents are supportive and her . Depression/Shaken Baby/Safe Sleeping:?Sw educated MOB on baby blues and depression. Sw also educated MOB on shaken baby prevention and ABCs of safe sleep. MOB expressed understanding. ASSESSMENT:? MOB open and receptive to sw involvement and support. When sw was finished with psychosocial assessment FOB presented to bedside. FOB was smiling from ear to ear and appeared to be very proud to have a little girl. MOB and FOB observed to have strong and supportive relationship. MOB expressed understanding of information provided and resources that are available to her. PLAN:? MOB and baby to be discharged when medically ready. No concerns from social work perspective at this time. ?No other services requested or indicated. Joaquín Iraheta, FIELD REP, MANAGER TELEMETRY
[2023-04-22 17:57] LABS: Bacteria 0 SEEN /hpf (None Seen); Mucous, Urine 0 SEEN /hpf (<or=2+)
[2023-04-22 18:03] LABS: Color, Urine Yellow (Yellow); Glucose, Dipstick Normal (Normal); Ketone-Dipstick Negative (Negative); Leukocyte Esterase-Dipstick 100 /ul (Negative); Nitrite-Dipstick Negative (Negative); Occult Blood-Urine 250 /ul (Negative); Protein-Dipstick 30 mg/dl (Negative); Specific Gravity, Urine 1.015 (1.002-1.030); Urine Bilirubin Dipstick Negative (Negative); Urine Clarity Cloudy (Clear); Urine Urobilinogen Normal (Normal); Urine pH 6.5 (5.0 - 8.0)
[2023-04-22 18:13] LABS: Red Blood Cells-Urine > 100 SEEN /hpf (0-5)
[2023-04-22 18:14] LABS: Squamous Epithelial Cells - UA 0-5 SEEN /hpf (5-10); White Blood Cells 10-25 SEEN /hpf (0-5)
== END 2023-04-22 17:45 | disposition home or self-care (01) | DRG 560 ==
PROVIDERS: Obstetrics & Gynecology; Admitting Provider Obstetrics & Gynecology; Referring Provider Obstetrics & Gynecology; Visit Provider Obstetrics & Gynecology
DX: O76 Abnormality in fetal heart rate and rhythm complicating labor and delivery (principal); Z37.0 Single live birth; O75.2 Pyrexia during labor, not elsewhere classified; O48.0 Post-term pregnancy; O69.81X0 Labor and delivery complicated by cord around neck, without compression, not applicable or unspecified; O77.0 Labor and delivery complicated by meconium in amniotic fluid; O70.0 First degree perineal laceration during delivery; Z3A.41 41 weeks gestation of pregnancy
CPT/HCPCS: 59025; 59050; 81001; 84112; 85025; 86780; 86850; 86900; 86901; 87086; 87088; 99221; J7120; A4216; G0378

== ENCOUNTER → 2025-08-18 | Outpatient (CLI) | payer MEDICAID, SELFPAY ==
[2025-08-18 10:12] LABS: Hematocrit 37.9 % (37-47); Hemoglobin 12.9 g/dL (12.0-15.0); Immature Granulocytes Count 0.010 X10^3/uL (0.0-0.0); Mean Corp Hgb Conc 34.0 g/dL (32-36); Mean Corpuscular Volume 90.5 fL (81-99); Mean Platelet Vol. 9.5 fl (6.2-12.0); NRBC Flagged by Analyzer 0 % (0-5); Platelet Count 356 K/mm3 (150-450); RBC Distribution Width CV 12.2 % (11.6-14.6); RBC Distribution Width SD 40.6 fl (35.1-43.9); Red Blood Count 4.19 M/mm3 (4.2-5.4); White Blood Count 4.6 K/mm3 (4.4-11.0)
--- OUTSIDE RECORDS SUMMARY | 2025-08-18 10:24 | XMS RPT_ITS | CCD ---
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 Karrie Roldan Attending Provider [phone] Brodie SANITATION INSPECTOR, SANITATION INSPECTOR-David Huffman Attending Provider [phone] Dr. Karrie Roldan Attending Provider [phone] Brodie SANITATION INSPECTOR, TE-David Huffman Attending Provider [phone] Dr. Renee Marshall Attending Provider [phone] Dr. Karrie Roldan Attending Provider [phone] JANICE Perry Attending Provider Dr. Renee Marshall Referring Provider [phone] Dr. Renee Marshall Other Provider [phone] Dr. Rui Starkey Attending Provider Dr. Karrie Roldan Referring Provider [phone] JANICE King Attending Provider [phone] Dr. Renee Marshall Attending Provider [phone] Care Physician, No Primary Primary Care Provider Unavailable Care Physician, No Primary Referring Provider Un available Dr. Renee Marshall Admit Provider Renee Marshall Attending Unavailable Care Physician, No Primary Referring Unava ilable Care Physician, No Primary Primary Care Unava ilable JAMES ESPINOZA APRN Attending Unavailable JAMES ESPINOZA APRN Primary Care Unavailable JAMES ESPINOZA APRN Admitting Unavailable Medications Current Medications Medication Drug Class(es) Dates Sig (Normalized) Sig (Original) Mv-Mins 44-Xmfn-Qgvzj No.1-Dha (Pnv-[place]) 28-1-300 mg capsule (9 sources) Start: 08-28-2022 take 1 capsule by mouth once daily Mv-Mins 73-Wexd-Pjger No.1-Dha (Pnv-[place]) 28-1-300 mg capsule Active 1 CAP PO DAILY August 28, 2022 1:00am Start: 08-28-2022 take 1 capsule by mouth once M v-Mins 45-Zgbz-Npkpf No.1-Dha (Pnv-[place]) 28-1-300 mg capsule Active CAP PO August 28, 2022 1:00am Start: 08-28-2022 take 1 capsule by mouth once M v-Mins 58-Kftv-Jsqyb No.1-Dha (Pnv-[place]) 28-1-300 mg capsule Active CAP PO August 28, 2022 12:00am Completed/Discontinued Medications Medication Drug Class(es) Dates Sig (Normalized) Sig (Original) fluconazole 150 mg oral tablet (7 sources) Azole Antifungal Start: 01-09-2023 End: 01-21-2023 Fluconazole (Diflucan) 150 mg tablet Discontinued 150 MG PO Q3D January 09, 2023 12:00am January 21, 2023 3:35pm promethazine hydrochloride 12.5 mg oral tablet (9 sources) Phenothiazine Start: 09-18-2022 End: 04-19-2023 take 12.5 mg by mouth every six hours Promethazine Discontinued 12.5 MG PO EVERY 6 HOURS 60 September 18, 2022 1:00am April 19, 2023 8:07pm Problems Problem Classification Problem Date Documented Da te Episodic/Chronic Abdominal pain (20 sources) Inguinal pain; Translations: [Lower abdominal pain, unspecified] 02-20-2023 Episodic Other complications of ; puerperium affecting management of mother (2 sources) Maternal pyrexia in labor; Translations: [Pyrexia during labor, not elsewhere classified] 04-21-2023 Episodic Other complications of ; puerperium affecting management of mother (2 sources) Pyrexia during labor, not elsewhere classified; Translations: [Maternal pyrexia during labor, unspecified, antepartum condition or complication] 04-19-2023 Episodic Other complications of (9 sources) High risk ; Translations: [Supervision of high risk , unspecified, unspecified trimester] 08-28-2022 Episodic Other complications of (20 sources) Supervision of high risk , unspecified, unspecified trimester; Translations: [Supervision of unspecified high-risk ] 09-18-2022 Episodic Other connective tissue disease (4 sources) Pain in left lower limb; Translations: [Pain in left leg] 02-20-2023 Episodic Other connective tissue disease (11 sources) Pain in left leg; Translations: [Pain in limb] 03-06-2023 Episodic Other and delivery including normal (20 sources) ; Translations: [Encounter for supervision of normal , unspecified, unspecified trimester] 11-12-2022 Episodic Other screening for suspected conditions (not mental disorders or infectious disease) (3 sources) Encounter for screening for diseases of the blood and blood-forming organs and certain disorders involving the immune mechanism; Translations: [Encounter for screening for other metabolic disorders] Onset: 11-22-2024 Episodic Results Test Name Value Interpretation Reference Range Facility CBC + DIFFon 11-22-2024 Baso # 0.01 x10EE3/UL Normal 0.00 - 0.10 [facility] Comment on above: Performed By: #### 2 [id number] #### [facility],[address] [place] [address] Basophils/100 WBC (Bld) 0.3 % Normal 0.0 - 2.0 [facility] Comment on above: Performed By: #### 2 32201 #### [facility],[address] [place] [address] CBC + DIFF Normal [facility] Comment on above: Result Comment: CBC- COMPLETE BLOOD COUNT Performed By: #### 2 46843 #### [facility],[address] [place], [place] [id number] EO # 0.12 x10EE3/UL Normal 0.00 - 0.50 [facility] Comment on above: Performed By: #### 2 41389 #### [facility],[address] [place] [address]355 Eosinophils/100 WBC (Bld) 2.6 % Normal 0.0 - 7.0 [facility] Comment on above: Performed By: #### 2 68240 #### [facility],[address] [place], [place] [id number] Erythrocyte distribution width (RBC) [Ratio] 12.4 % Normal 12.0 - 15.6 [facility] Comment on above: Performed By: #### 2 97162 #### [facility],[address] [place] [address] Hematocrit (Bld) [Volume fraction] 39.2 % Normal 34.0 - 46.0 [facility] Comment on above: Performed By: #### 2 27995 #### [facility],[address] [place] [address] Hemoglobin (Bld) [Mass/Vol] 13.5 g/dL Normal 12.0 - 16.0 [facility] Comment on above: Performed By: #### 2 76497 #### [facility],[address] [place] [address] Lymph # 2.38 x10EE3/UL Normal 0.80 - 2.80 [facility] Comment on above: Performed By: #### 2 82427 #### [facility],[address] [place], [place] [id number] Lymphocytes/100 WBC (Bld) 51.7 % High 20.0 - 45.0 [facility] Comment on above: Performed By: #### 2 16844 #### [facility],[address] [place], [place] [id number] MANUAL DIFF N/A Normal [facility] Comment on above: Performed By: #### 2 22400 #### [facility],[address] [place] [address] 84939 MCH (RBC) [Entitic mass] 32 pg Normal 27 - 33 [facility] Comment on above: Performed By: #### 2 29317 #### [facility],[address] [place] [address] 43541 MCHC 34 X10 3 Normal 32 - 36 [facility] Comment on above: Performed By: #### 2 24865 #### [facility],[address] [place] [address] 06141 MCV (RBC) [Entitic vol] 91 fL Normal 80 - 99 [facility] Comment on above: Performed By: #### 2 95965 #### [facility],[address] [place] [address]74 [place] # 0.31 x10EE3/UL Normal 0.20 - 1.00 [facility] Comment on above: Performed By: #### 2 89635 #### [facility],[address] [place] [address] 53194 MONOS % 6.8 % Normal 0.0 - 10.0 [facility] Comment on above: Performed By: #### 2 04096 #### [facility],[address] [place] [address] 57797 Morphology Kit (Bld) [Interp] N/A Normal [facility] Comment on above: Performed By: #### 2 51168 #### [facility],[address] [place] [address] 63275 Neut # 1.78 x10EE3/UL Normal 1.50 - 7.10 [facility] Comment on above: Performed By: #### 2 91848 #### [facility],[address] [place] [address] 38164 Neutrophils/100 WBC (Bld) 38.6 % Low 46.0 - 76.0 [facility] Comment on above: Performed By: #### 2 31371 #### [facility],[address] [place] [address] 30364 PLATELET 422 x10EE3/UL Normal 150 - 450 [facility] Comment on above: Performed By: #### 2 81945 #### [facility],[address] [place] [address] 78124 Platelet mean volume (Bld) [Entitic vol] 8.0 fL Normal 6.6 - 10.5 [facility] Comment on above: Result Comment: AUTO MATED DIFFERENTIAL Performed By: #### 2 14312 #### [facility],[address] [place] [address] 76775 RBC 4.29 x 10EE6/UL Normal 4.10 - 5.30 [facility] Comment on above: Performed By: #### 2 85218 #### [facility],[address] [place] [address] 75396 WBC 4.6 x 10EE3/UL Normal 4.5 - 10.8 [facility] Comment on above: Performed By: #### 2 13076 #### [facility],[address] [place] [address] 58576 CMP with eGFRon 11-22-2024 AGE 29 years Normal [facility] Comment on above: Performed By: #### 2 48331 #### [facility],[address] [place] [address] 08210 Albumin [Mass/Vol] 4.1 g/dL Normal 3.4 - 5.0 [facility] Comment on above: Performed By: #### 2 96334 #### [facility],[address] [place] [address] 29583 Albumin/Globulin [Mass ratio] 1.3 {ratio} Normal 0.9 - 1.6 [facility] Comment on above: Performed By: #### 2 51536 #### [facility],[address] [place] [address] 04503 ALK PHOS 116 U/L Normal 46 - 116 [facility] Comment on above: Performed By: #### 2 83303 #### [facility],[address] [place] [address] 43802 ALT [Catalytic activity/Vol] 20 U/L Normal 16 - 63 [facility] Comment on above: Performed By: #### 2 35271 #### [facility],[address] [place] [address] 28370 Anion gap [Moles/Vol] 11 mmol/L Normal 10 - 20 [facility] Comment on above: Performed By: #### 2 36890 #### [facility],[address] [place] [address] 72793 AST [Catalytic activity/Vol] 22 U/L Normal 13 - 39 [facility] Comment on above: Performed By: #### 2 40828 #### [facility],[address] [place] [address] 28960 B/C RATIO 28 ratio Normal 0 - 30 [facility] Comment on above: Performed By: #### 2 03743 #### [facility],[address] [place] [address] 62904 Bilirubin [Mass/Vol] 0.6 mg/dL Normal 0.2 - 1.0 [facility] Comment on above: Performed By: #### 2 67525 #### [facility],[address] [place] [address] 34255 Calcium [Mass/Vol] 9.0 mg/dL Normal 8.5 - 10.1 [facility] Comment on above: Performed By: #### 2 36876 #### [facility],[address] [place] [address] 03976 Chloride [Moles/Vol] 105 mmol/L Normal 98 - 107 [facility] Comment on above: Performed By: #### 2 95506 #### [facility],[address] [place] [address] 09968 CMP with eGFR Normal [facility] Comment on above: Result Comment: COMP REHENSIVE METABOLIC PANEL Performed By: #### 2 35323 #### [facility],[address] [place] [address] 83446 CO2 [Moles/Vol] 28.7 mmol/L Normal 21.0 - 32.0 [facility] Comment on above: Performed By: #### 2 30329 #### [facility],[address] [place] [address] 31513 Creatinine [Mass/Vol] 0.65 mg/dL Normal 0.55 - 1.02 [facility] Comment on above: Performed By: #### 2 26859 #### [facility],[address] [place] [address] 96370 GFR/1.73 sq M.predicted among non-blacks MDRD (S/P/Bld) [Vol rate/Area] mL/min/{1.73_m2} Normal 60 - 999 [facility] Comment on above: Performed By: #### 2 11242 #### [facility],[address] [place], [place] [id number] Result Comment: ACCO RDING TO THE NATIONAL KIDNEY DISEASE EDUCATION PROGRAM(NKDE), A NORMAL eGFR IS A VALUE GREATER THAN OR EQUAL TO 60 ML/MIN/1.73 SQ METERS. CHRONIC KIDNEY DISEASE: <60mL/MIN/1.73 SQ METERS KIDNEY FAILURE: <15mL/MIN/1.73 SQ METERS THIS TEST SHOULD ONLY BE USED FOR PATIENTS 18 YEARS OF AGE AND OLDER. Globulin (S) [Mass/Vol] 3.2 g/dL Normal 1.5 - 3.8 [facility] Comment on above: Performed By: #### 2 22930 #### [address] [address] Glucose [Mass/Vol] 81 mg/dL Normal 74 - 106 [facility] Comment on above: Performed By: #### 2 74063 #### [facility],[address] [place] [address] 90371 Potassium [Moles/Vol] 3.9 mmol/L Normal 3.5 - 5.1 [facility] Comment on above: Performed By: #### 2 81920 #### [facility],[address] [place] [address] 82345 Protein [Mass/Vol] 7.3 g/dL Normal 6.4 - 8.2 [facility] Comment on above: Performed By: #### 2 64763 #### [facility],[address] [place] [address] 91372 Sodium [Moles/Vol] 141 mmol/L Normal 136 - 145 [facility] Comment on above: Performed By: #### 2 86194 #### [facility],[address] [place] [address] 04173 Urea nitrogen [Mass/Vol] 18 mg/dL Normal 7 - 18 [facility] Comment on above: Performed By: #### 2 55720 #### [facility],[address] [place] [address] 96998 LIPID PROFILEon 11-22-2024 Cholesterol [Mass/Vol] 235 mg/dL Normal 0 - 240 [facility] Comment on above: Performed By: #### 2 04144 #### [facility],[address] [place] [address] 32597 Cholesterol in HDL [Mass/Vol] 64 mg/dL High 40 - 60 [facility] Comment on above: Performed By: #### 2 07978 #### [facility],[address] [place] [address] 50661 Cholesterol in LDL [Mass/Vol] 140 mg/dL High 0 - 129 [facility] Comment on above: Performed By: #### 2 99657 #### [facility],[address] [place] [address] 09920 Cholesterol.total/Choles terol in HDL [Mass ratio] 3.7 {ratio} Normal 0.0 - 5.0 [facility] Comment on above: Performed By: #### 2 56852 #### [facility],[address] [place] [address] 83427 Lipid 1996 panel Normal [facility] Comment on above: Result Comment: LIPI D PROFILE Performed By: #### 2 94767 #### [facility],[address] [place] [address] 69431 Triglyceride [Mass/Vol] 155 mg/dL High 0 - 150 [facility] Comment on above: Performed By: #### 2 99313 #### [facility],[address] [id number] Digital Marketing Officer Office Visit Reporton 06-13-2024 Digital Marketing Officer Office Visit Report [facility] [address], [address] [place] [id number] OFFICE VISIT Date of Service: 06/13/24 MR#: [id number] Acct: [id number] Name: IBETH EDMOND Rep #: [id number] : 1995 Provider: Dr. 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 Is patient in pain?: No Feel stressed/tense/nervou s/anxious/difficulty sleeping: not at all Allergies No Known Allergies Allergy (Verified 06/13/24 16:08) Is last menstrual period known: No Post menopausal: No Patient : No : Yes [facility] History Varicose veins during Pain in left leg Left inguinal pain Breast lump Surgical History Hx of appendectomy Family History Father Diabetes Type II Social History adopted: No household members: spouse housing: house number of children: 1 current occupational status: unemployed current occupational exposures/hazards: No pets and animals: Yes pets and animals: dog(s) history of recent travel: Yes ([place]) out of state: Yes out of country: No sexually active: Yes Smoking Status: Never smoker alcohol intake: never substance use type: does not use well-balanced diet: about half the time caffeine: Yes Type: carbonated beverages Number of servings: 1 eating out: 1-3 times/week during the past year weight has: remained stable what type of physical activity do you participate in: none olga/latter-day: None seatbelt use: always do you feel safe at home: Yes additional social history: [employer] work History 1 Elective abortions Hx Para 1 Spontaneous abortions Hx # Term Pregnancies Ectopic pregnancies Hx # Pregnancies Multiple births # of living children 1 Past Pregnancies Del. Date Name GA/Weeks Outcome Route Bth Weight Gen Labor Lgth Anesthesia Del Locatn Provider FOB 04/21/23 Julianna 41 8#6oz Female epidural [facility] Rolando Farmer HPI Encounter for routine gynecological examination Details: IBETH EDMOND is a 29 year old who presents for annual exam. hasn't had a menses but still nursing. i instructed her to take a test. Last PAP: 09/18/22 History of abnormal PAP: Other preventative health care screenings: No PCP Female Reproductive History Questions: metorrhagia: No, sexually active: Yes, dyspareunia: No and PCB: No Menopausal Symptoms: No hot flashes, No night sweats, No weight change, No mood changes, No difficulty concentrating, No sleep problems and No change in libido ROS Const Constitutional: Reports as per HPI; Denies fatigue, increased appetite, poor appetite, night sweats, weight gain or weight loss Cardio Card: Denies chest pain Resp Resp: Denies cough or dyspnea GI GI: Reports as per HPI; Denies abdominal pain, bloating, constipation, nausea or vomiting : Reports as per HPI, nipple discharge (breast milk- intentional) and other; Denies difficulty voiding, dysuria, hematuria, hot flashes, pelvic pain, prolapse symptoms, urinary frequency, urinary incontinence, urinary urgency, vaginal discharge, vaginal dryness, vaginal odor or vaginal pruritus Skin Skin/Breast: Reports nipple discharge (breast milk- intentional); Denies changing lesions, breast mass, breast pain or breast skin changes Psych Psych: Denies anxiety, change in libido, depression or difficulty concentrating Exam Const General: cooperative, healthy appearing, comfortable, no acute distress, well developed and well groomed HENMA Head: normal to inspection and normocephalic Ears: hearing grossly normal bilaterally and external ears normal Nose: external nose normal Face and sinus: normal facial exam Neck Neck: normal visual inspection, full ROM and no lymphadenopathy Thyroid: thyroid normal Chest Chest palpation inspection: normal inspection of the chest Breast inspection: normal inspection of the breasts and normal inspection of the axillae Breast palpation: normal palpation of the breasts, normal palpation of the axillae and no axillary lymphadenopathy Resp Effort Inspection: normal respiratory effort GI Inspection: normal to inspection and non-distended Palpation: soft, no hepatosplenomegaly and no guarding General: bladder normal to palpation External Female Exam: normal external appearance, normal appearance of the urethra and no lesions (more content not included)... Normal [facility] Absolute lymphocyte countOrd ered By: Karrie Antunez on 04-19-2023 Lymphocytes Auto (Unsp spec) [#/Vol] 1.47 10*3/uL 0.83-4.51 [facility] Basophil percentageOrdered B y: Karrie Antunez on 04-19-2023 Basophils/100 WBC (Bld) 0.8 % 0-1 [facility] Eosinophils/100 WBC (Bld) 2.7 % 0-5 [facility] Neutrophils (Bld) [#/Vol] 3.0 10*3/uL 2.0-7.7 [facility] Neutrophils/100 WBC (Bld) 59.5 % 47-70 [facility] WBC (Bld) [#/Vol] 5.1 10*3/uL 4.4-11.0 [facility] Blood erythrocytes count (nu mber/volume)Ordered By: Karrie Antunez on 04-19-2023 RBC (Bld) [#/Vol] 3.71 10*6/uL 4.2-5.4 [facility] Blood hemoglobin measurement (mass/volume)Ordered By: Karrie Antunez on 04-19-2023 Hemoglobin (Bld) [Mass/Vol] 12.0 g/dL 12.0-15.0 [facility] Blood lymphocytes/100 leukoc ytesOrdered By: Karrie Antunez on 04-19-2023 Lymphocytes/100 WBC (Bld) 28.8 % 19-41 [facility] Blood monocytes/100 leukocyt esOrdered By: Karrie Antunez on 04-19-2023 Monocytes/100 WBC (Bld) 7.6 % 0-10 [facility] Blood platelet mean volumeOr dered By: Karrie Antunez on 04-19-2023 Platelet mean volume (Bld) [Entitic vol] 10.9 fL 6.2-12.0 [facility] Determination of erythrocyte mean corpuscular volume (MCV)Ordered By: Karrie Antunez on 04-19-2023 MCV (RBC) [Entitic vol] 98.9 fL 81-99 [facility] Hematocrit Auto (Bld) [Volum e fraction]Ordered By: Karrie Antunez on 04-19-2023 Hematocrit (Bld) [Volume fraction] 36.7 % 37-47 [facility] Laboratory - Hematology and Cell countsOrdered By: Karrie Antunez on 04-19-2023 Erythrocyte distribution width (RBC) [Entitic vol] 47.8 fL 35.1-43.9 [facility] Erythrocyte distribution width (RBC) [Ratio] 13.2 % 11.6-14.6 [facility] Immature granulocytes/100 WBC (Bld) 0.600 % 0.0-0.9 [facility] Comment on above: IG% - Immature Granu locytes (promyelocytes, myelocytes and metamyelocytes) > 1% indicates that a LEFT SHIFT is Present. MCH (RBC) [Entitic mass] 32.3 pg 27.0-32.0 [facility] Nucleated RBC/100 WBC (Bld) [Ratio] 0 % 0-5 [facility] MCHC Auto (RBC) [Mass/Vol]Or dered By: Karrie Antunez on 04-19-2023 MCHC (RBC) [Mass/Vol] 32.7 g/dL 32-36 [facility] Platelets bldOrdered By: Carolyn Antunez on 04-19-2023 Platelets (Bld) [#/Vol] 253 10*3/uL 150-450 [facility] Serum Treponema species anti body detectionOrdered By: Karrie Antunez on 04-19-2023 Treponema sp Ab Ql (S) Non-Reactive [facility] Laboratory - Chemistry and C hemistry - challengeon 04-16-2023 Glucose Ql (U) Negative [facility] Laboratory - Urinalysison Protein Ql (U) Negative [facility] No Panel InformationOrdered By: Karrie Antunez on 04-16-2023 Vaginal Amniotic Fluid Detection Negative Negative [facility] Comment on above: Amniotic fluid not p resent indicates No Rupture of FetalMembranes at time of specimen collection. Laboratory - Chemistry and C hemistry - challengeon 04-10-2023 Glucose Ql (U) Negative [facility] Laboratory - Urinalysison Protein Ql (U) Negative [facility] Laboratory - Chemistry and C hemistry - challengeon 03-27-2023 Glucose Ql (U) Negative [facility] Laboratory - Urinalysison Protein Ql (U) Negative [facility] Laboratory - Chemistry and C hemistry - challengeon 03-19-2023 Glucose Ql (U) Negative [facility] Laboratory - Urinalysison Protein Ql (U) Negative [facility] No Panel InformationOrdered By: Karrie Antunez on 03-19-2023 Group B Streptococcus Culture Group B Beta Streptococcus is not isolated. [facility] Laboratory - Chemistry and C hemistry - challengeon 03-06-2023 Glucose Ql (U) Negative [facility] Laboratory - Urinalysison Protein Ql (U) Negative [facility] Laboratory - Chemistry and C hemistry - challengeon 02-20-2023 Glucose Ql (U) Negative [facility] Laboratory - Urinalysison Protein Ql (U) Negative [facility] [facility] Absolute lymphocyte countOrd ered By: Dr. Marshall on 02-13-2023 Lymphocytes Auto (Unsp spec) [#/Vol] 1.45 10*3/uL 0.83-4.51 [facility] Basophil percentageOrdered B y: Dr. Marshall on 02-13-2023 Basophils/100 WBC (Bld) 0.6 % 0-1 [facility] Eosinophils/100 WBC (Bld) 1.3 % 0-5 [facility] Neutrophils (Bld) [#/Vol] 3.2 10*3/uL 2.0-7.7 [facility] Neutrophils/100 WBC (Bld) 61.3 % 47-70 [facility] WBC (Bld) [#/Vol] 5.2 10*3/uL 4.4-11.0 [facility] Blood erythrocytes count (nu mber/volume)Ordered By: Dr. Marshall on 02-13-2023 RBC (Bld) [#/Vol] 3.28 10*6/uL 4.2-5.4 [facility] Blood hemoglobin measurement (mass/volume)Ordered By: Dr. Marshall on 02-13-2023 Hemoglobin (Bld) [Mass/Vol] 10.9 g/dL 12.0-15.0 [facility] Blood lymphocytes/100 leukoc ytesOrdered By: Dr. Marshall on 02-13-2023 Lymphocytes/100 WBC (Bld) 27.8 % 19-41 [facility] Blood monocytes/100 leukocyt esOrdered By: Dr. Marshall on 02-13-2023 Monocytes/100 WBC (Bld) 8.0 % 0-10 [facility] Blood platelet mean volumeOr dered By: Dr. Marshall on 02-13-2023 Platelet mean volume (Bld) [Entitic vol] 9.8 fL 6.2-12.0 [facility] Determination of erythrocyte mean corpuscular volume (MCV)Ordered By: Dr. Marshall on 02-13-2023 MCV (RBC) [Entitic vol] 98.2 fL 81-99 [facility] Hematocrit Auto (Bld) [Volum e fraction]Ordered By: Dr. Marshall on 02-13-2023 Hematocrit (Bld) [Volume fraction] 32.2 % 37-47 [facility] Laboratory - Hematology and Cell countsOrdered By: Dr. Marshall on 02-13-2023 Erythrocyte distribution width (RBC) [Entitic vol] 46.1 fL 35.1-43.9 [facility] Erythrocyte distribution width (RBC) [Ratio] 13.0 % 11.6-14.6 [facility] Immature granulocytes/100 WBC (Bld) 1.000 % 0.0-0.9 [facility] Comment on above: IG% - Immature Granu locytes (promyelocytes, myelocytes and metamyelocytes) > 1% indicates that a LEFT SHIFT is Present. MCH (RBC) [Entitic mass] 33.2 pg 27.0-32.0 [facility] Nucleated RBC/100 WBC (Bld) [Ratio] 0 % 0-5 [facility] MCHC Auto (RBC) [Mass/Vol]Or dered By: Dr. Marshall on 02-13-2023 MCHC (RBC) [Mass/Vol] 33.9 g/dL 32-36 [facility] No Panel InformationOrdered By: Dr. Marshall on 02-13-2023 Fibrinogen 443 mg/dl 203-444 [facility] Platelets bldOrdered By: Dr. Marshall on 02-13-2023 Platelets (Bld) [#/Vol] 263 10*3/uL 150-450 [facility] Laboratory - Chemistry and C hemistry - challengeon 02-06-2023 Glucose Ql (U) Negative [facility] Laboratory - Urinalysison Protein Ql (U) Negative [facility] HIV 1 and HIV-2 antibody ass ay with HIV-1 p24 antigen detectionOrdered By: Dr. Antunez on 01-21-2023 HIV 1+2 Ab+HIV1 p24 Ag IA Ql Non-Reactive Nonreactive [facility] Laboratory - Chemistry and C hemistry - challengeon 01-21-2023 Glucose Ql (U) Negative [facility] Laboratory - Urinalysison Protein Ql (U) Negative [facility] No Panel InformationOrdered By: Dr. Antunez on 01-21-2023 Herpes Simplex Virus I IgG Antibody < 0.91 index 0.00-0.90 [facility] Comment on above: Negative <0.91 Equiv ocal 0.91 - 1.09 Positive >1.09 Note: Negative indicates no antibodies detected to HSV-1. Equivocal may suggest early infection. If clinically appropriate, retest at later date. Positive indicates antibodies detected to HSV-1. Miscellaneous Test See comment [facility] Comment on above: TEST RESULTS [facility] uman Herpes Virus Type 6 IgM < 1:10 Neg: <1:10 TESTING PERFORMED AT [facility]. ORIGINAL REPORT ON FILE IN LAB CONTAINS ADDITIONAL TEST SITE INFORMATION. Serum Treponema species anti body detectionOrdered By: Dr. Antunez on 01-21-2023 Treponema sp Ab Ql (S) Non-Reactive [facility] Serum herpes simplex virus 2 antibody assay by immunoassay (units/volume)Ordered By: Dr. Antunez on 01-21-2023 HSV 2 Ab IA Qn (S) < 0.91 index 0.00-0.90 [facility] Comment on above: Negative <0.91 Equiv ocal 0.91 - 1.09 Positive >1.09 Note: Negative indicates no HSV-2 antibodies detected. Positive indicates HSV-2 antibodies detected. Equivocal and low positive HSV-2 screens (Index 0.91-5.00) may be false positive and are reflexed to supplemental testing in accordance with CDC guidelines.Performed at: [place] [id number] Director: William Cervantes PhD, Phone: [phone] Thin prep Papanicolaou smear with manual screeningOrdered By: Dr. Antunez on 01-12-2023 Genital Culture Presumptive C albicans [facility] Gram stain for investigation of transfusion reactionOrdered By: Dr. Antunez on 01-10-2023 Microscopic observation Gram stain Nom (Unsp spec) [facility] Absolute lymphocyte countOrd ered By: Dr. Anutnez on 01-09-2023 Lymphocytes Auto (Unsp spec) [#/Vol] 1.71 10*3/uL 0.83-4.51 [facility] Basophil percentageOrdered B y: Dr. Antunez on 01-09-2023 Basophils/100 WBC (Bld) 0.5 % 0-1 [facility] Eosinophils/100 WBC (Bld) 0.9 % 0-5 [facility] Neutrophils (Bld) [#/Vol] 4.2 10*3/uL 2.0-7.7 [facility] Neutrophils/100 WBC (Bld) 63.1 % 47-70 [facility] WBC (Bld) [#/Vol] 6.6 10*3/uL 4.4-11.0 [facility] Blood erythrocytes count (nu mber/volume)Ordered By: Dr. Antunez on 01-09-2023 RBC (Bld) [#/Vol] 3.42 10*6/uL 4.2-5.4 [facility] Blood hemoglobin measurement (mass/volume)Ordered By: Dr. Antunez on 01-09-2023 Hemoglobin (Bld) [Mass/Vol] 11.2 g/dL 12.0-15.0 [facility] Blood lymphocytes/100 leukoc ytesOrdered By: Dr. Antunez on 01-09-2023 Lymphocytes/100 WBC (Bld) 25.9 % 19-41 [facility] Blood monocytes/100 leukocyt esOrdered By: Dr. Antunez on 01-09-2023 Monocytes/100 WBC (Bld) 8.2 % 0-10 [facility] Blood platelet mean volumeOr dered By: Dr. Antunez on 01-09-2023 Platelet mean volume (Bld) [Entitic vol] 9.9 fL 6.2-12.0 [facility] Determination of erythrocyte mean corpuscular volume (MCV)Ordered By: Dr. Antunez on 01-09-2023 MCV (RBC) [Entitic vol] 100.9 fL 81-99 [facility] Gestational diabetes screen 1-hour screen with 50g oral glucose loadOrdered By: Dr. Antunez on 01-09-2023 Glucose 1 Hr post 50 g glucose PO [Mass/Vol] 103 mg/dL 70-140 [facility] Gram stain for investigation of transfusion reactionOrdered By: Karrie Antunez on 01-09-2023 Microscopic observation Gram stain Nom (Unsp spec) [facility] Hematocrit Auto (Bld) [Volum e fraction]Ordered By: Dr. Antunez on 01-09-2023 Hematocrit (Bld) [Volume fraction] 34.5 % 37-47 [facility] Laboratory - Chemistry and C hemistry - challengeon 01-09-2023 Glucose Ql (U) Negative [facility] Laboratory - Hematology and Cell countsOrdered By: Dr. Antunze on 01-09-2023 Erythrocyte distribution width (RBC) [Entitic vol] 48.6 fL 35.1-43.9 [facility] Erythrocyte distribution width (RBC) [Ratio] 13.1 % 11.6-14.6 [facility] Immature granulocytes/100 WBC (Bld) 1.400 % 0.0-0.9 [facility] Comment on above: IG% - Immature Granu locytes (promyelocytes, myelocytes and metamyelocytes) > 1% indicates that a LEFT SHIFT is Present. MCH (RBC) [Entitic mass] 32.7 pg 27.0-32.0 [facility] Nucleated RBC/100 WBC (Bld) [Ratio] 0 % 0-5 [facility] Laboratory - Urinalysison Protein Ql (U) Negative [facility] MCHC Auto (RBC) [Mass/Vol]Or dered By: Dr. Antunez on 01-09-2023 MCHC (RBC) [Mass/Vol] 32.5 g/dL 32-36 [facility] Platelets bldOrdered By: Dr. Antunez on 01-09-2023 Platelets (Bld) [#/Vol] 315 10*3/uL 150-450 [facility] Thin prep Papanicolaou smear with manual screeningOrdered By: Karrie Antunez on 01-09-2023 Genital Culture Presumptive C albicans [facility] Laboratory - Chemistry and C hemistry - challengeon 12-12-2022 Glucose Ql (U) Negative [facility] Laboratory - Urinalysison Protein Ql (U) Negative [facility] Absolute lymphocyte countOrd ered By: Dr. Antunez on 11-12-2022 Lymphocytes Auto (Unsp spec) [#/Vol] 1.53 10*3/uL 0.83-4.51 [facility] Basophil percentageOrdered B y: Dr. Antunez on 11-12-2022 Basophils/100 WBC (Bld) 0.5 % 0-1 [facility] Eosinophils/100 WBC (Bld) 1.2 % 0-5 [facility] Neutrophils (Bld) [#/Vol] 4.0 10*3/uL 2.0-7.7 [facility] Neutrophils/100 WBC (Bld) 66.9 % 47-70 [facility] WBC (Bld) [#/Vol] 6.0 10*3/uL 4.4-11.0 [facility] Blood erythrocytes count (nu mber/volume)Ordered By: Dr. Antunez on 11-12-2022 RBC (Bld) [#/Vol] 3.37 10*6/uL 4.2-5.4 [facility] Blood hemoglobin measurement (mass/volume)Ordered By: Dr. Antunez on 11-12-2022 Hemoglobin (Bld) [Mass/Vol] 11.0 g/dL 12.0-15.0 [facility] Blood lymphocytes/100 leukoc ytesOrdered By: Dr. Antunez on 11-12-2022 Lymphocytes/100 WBC (Bld) 25.5 % 19-41 [facility] Blood monocytes/100 leukocyt esOrdered By: Dr. Antunez on 11-12-2022 Monocytes/100 WBC (Bld) 5.2 % 0-10 [facility] Blood platelet mean volumeOr dered By: Dr. Antunez on 11-12-2022 Platelet mean volume (Bld) [Entitic vol] 9.4 fL 6.2-12.0 [facility] Determination of erythrocyte mean corpuscular volume (MCV)Ordered By: Dr. Antunez on 11-12-2022 MCV (RBC) [Entitic vol] 95.3 fL 81-99 [facility] HIV 1 and HIV-2 antibody ass ay with HIV-1 p24 antigen detectionOrdered By: Dr. Antunez on 11-12-2022 HIV 1+2 Ab+HIV1 p24 Ag IA Ql Non-Reactive Nonreactive [facility] Hematocrit Auto (Bld) [Volum e fraction]Ordered By: Dr. Antunez on 11-12-2022 Hematocrit (Bld) [Volume fraction] 32.1 % 37-47 [facility] Laboratory - Chemistry and C hemistry - challengeon 11-12-2022 Glucose Ql (U) Negative [facility] Laboratory - Hematology and Cell countsOrdered By: Dr. Antunez on 11-12-2022 Erythrocyte distribution width (RBC) [Entitic vol] 47.4 fL 35.1-43.9 [facility] Erythrocyte distribution width (RBC) [Ratio] 13.6 % 11.6-14.6 [facility] Immature granulocytes/100 WBC (Bld) 0.700 % 0.0-0.9 [facility] Comment on above: IG% - Immature Granu locytes (promyelocytes, myelocytes and metamyelocytes) > 1% indicates that a LEFT SHIFT is Present. MCH (RBC) [Entitic mass] 32.6 pg 27.0-32.0 [facility] Nucleated RBC/100 WBC (Bld) [Ratio] 0 % 0-5 [facility] Laboratory - Urinalysison Protein Ql (U) Negative [facility] MCHC Auto (RBC) [Mass/Vol]Or dered By: Dr. Antunez on 11-12-2022 MCHC (RBC) [Mass/Vol] 34.3 g/dL 32-36 [facility] No Panel InformationOrdered By: Dr. Antunez on 11-12-2022 Hepatitis B Surface Antigen Non-Reactive Nonreactive [facility] Hepatitis C Antibody Non-Reactive Nonreactive [facility] Comment on above: Non Reactive: < 0.8 Equivocal: >/= 0.8 to < 1.0 Reactive: >/= 1.0The CDC recommends that a reactive/equivocal HCV antibody result be followed up by the HCV Nucleic Acid Amplificationtest (320596) Rubella IgG Antibody Reactive Nonreactive [facility] Comment on above: Antibody Results Int erpretation of Immune Status Non Reactive Presumed Non-Immune Equivocal Equivocal Reactive Presumed Immune Platelets bldOrdered By: Dr. Antunez on 11-12-2022 Platelets (Bld) [#/Vol] 292 10*3/uL 150-450 [facility] Serum Treponema species anti body detectionOrdered By: Dr. Antunez on 11-12-2022 Treponema sp Ab Ql (S) Non-Reactive [facility] Culture, urineOrdered By: Dr Sadi Antunez on 09-20-2022 Bacteria identified Cx Nom (U) Culture exhibits no growth. [facility] Cervical or vagninal specime n microscopic examination by cytology stain (reported asOrdered By: Dr. Antunez on 09-18-2022 Cytology report Cyto stain Doc (Cvx/Vag) Comment . [facility] Comment on above: The Pap smear is a s creening test designed to aid in thedetection of premalignant and malignant conditions of theuterine cervix. It is not a diagnostic procedure andshould not be used as the sole means of detecting cervicalcancer. Both false-positive and false-negative reports dooccur. Chlamydia trachomatis rRNA d etection by probe and target amplification methodOrdered By: Dr. Antunez on 09-18-2022 C. trachomatis rRNA OSORIO+probe Ql (Unsp spec) Negative Negative [facility] Laboratory - CytologyOrdered By: Dr. Antunez on 09-18-2022 Rad Tech Cyto stain Nom (Cvx/Vag) [ID] Comment . [facility] Comment on above: Arabella Edmond, Cyto technologist (ASCP) Laboratory - Microbiology an d Antimicrobial susceptibilityOrdered By: Dr. Antunez on 09-18-2022 N. gonorrhoeae DNA OSORIO+probe Ql (Unsp spec) Negative Negative [facility] Comment on above: Performed at: [facility] [address] [id number] Director: Rosey Christie MD, Phone: [phone] Laboratory - Miscellaneous t estsOrdered By: Dr. Antunez on 09-18-2022 Service comment (Unsp spec) [Interp] Comment . [facility] Comment on above: This liquid based Th inPrep(R) pap test was screened withthe use of an image guided system. Service comment (Unsp spec) [Interp] . . [facility] No Panel InformationOrdered By: Dr. Antunez on 09-18-2022 Human Papillomavirus Screen Comment . [facility] Comment on above: The HPV DNA reflex c emelyneria were not met with this specimenresult therefore, no HPV testing was performed.Performed at: - [facility] [id number] Director: Rosey Christie MD, Phone: [phone] Pathology report final diagnosis Narrative Comment . [facility] Comment on above: NEGATIVE FOR INTRAEP ITHELIAL LESION OR MALIGNANCY. Vital Signs Date Time Vital Sign Value Performing Clinician Faci lity 04-22-2023 14:41-0400 Body temperature 97.3 [degF] Dr. Renee Marshall Work Phone: [facility] 04-22-2023 14:41-0400 Diastolic blood pressure 55 mm[Hg] Dr. Renee Marshall Work Phone: [facility] 04-22-2023 14:41-0400 Heart rate 70 /min Dr. Renee Marshall Work Phone: [facility] 04-22-2023 14:41-0400 Respiratory rate 16 /min Dr. Renee Marshall Work Phone: [facility] 04-22-2023 14:41-0400 Systolic blood pressure 97 mm[Hg] Dr. Renee Marshall Work Phone: [facility] 04-21-2023 07:57-0400 Body temperature 98.1 [degF] Dr. Renee Marshall Work Phone: [facility] 04-21-2023 07:57-0400 Diastolic blood pressure 55 mm[Hg] Dr. Renee Marshall Work Phone: [facility] 04-21-2023 07:57-0400 Heart rate 94 /min Dr. Renee Marshall Work Phone: [facility] 04-21-2023 07:57-0400 Respiratory rate 16 /min Dr. Renee Marshall Work Phone: [facility] 04-21-2023 07:57-0400 Systolic blood pressure 81 mm[Hg] Dr. Renee Marshall Work Phone: [facility] 04-21-2023 02:20-0400 SaO2% (BldA) [Mass fraction] 96 % Dr. Renee Marshall Work Phone: [facility] 04-19-2023 20:09-0400 Body height 149.[address] Renee Marshall Work Phone: [facility] 04-19-2023 20:09-0400 Body mass index (BMI) [Ratio] 32.5 kg/m2 Dr. Renee Marshall Work Phone: [facility] 04-19-2023 20:09-0400 Body weight 73.[address] Renee Marshall Work Phone: [facility] 04-16-2023 16:35-0400 Body mass index (BMI) [Ratio] 32.8 kg/m2 Dr. Renee Marshall Work Phone: [facility] 04-16-2023 16:35-0400 Body weight 73.[address] Renee Marshall Work Phone: [facility] 04-16-2023 16:35-0400 Diastolic blood pressure 70 mm[Hg] Dr. Renee Marshall Work Phone: [facility] 04-16-2023 16:35-0400 Systolic blood pressure 103 mm[Hg] Dr. Renee Marshall Work Phone: [facility] 04-10-2023 16:26-0400 Body mass index (BMI) [Ratio] 32.5 kg/m2 Dr. Renee Marshall Work Phone: [facility] 04-10-2023 16:26-0400 Body weight 73.[address] Renee Marshall Work Phone: [facility] 04-10-2023 16:26-0400 Diastolic blood pressure 66 mm[Hg] Dr. Renee Marshall Work Phone: [facility] 04-10-2023 16:26-0400 Systolic blood pressure 103 mm[Hg] Dr. Renee Marshall Work Phone: [facility] 04-03-2023 16:21-0400 Body mass index (BMI) [Ratio] 32.3 kg/m2 Dr. Renee Marshall Work Phone: [facility] 04-03-2023 16:21-0400 Body weight 72.[address] Renee Marshall Work Phone: [facility] 04-03-2023 16:21-0400 Diastolic blood pressure 64 mm[Hg] Dr. Renee Marshall Work Phone: 0(414)435-026273 [place] [address] 04-03-2023 16:21-0400 Systolic blood pressure 96 mm[Hg] Dr. Renee Marshall Work Phone: 1(704)906-250273 [place] [address] 03-27-2023 16:09-0400 Body mass index (BMI) [Ratio] 32.1 kg/m2 Dr. Renee Marshall Work Phone: 8(416)547-641173 [place] [address] 03-27-2023 16:09-0400 Body weight 72.[address] Renee Marshall Work Phone: 5(431)587-609873 [place] [address] 03-27-2023 16:09-0400 Diastolic blood pressure 66 mm[Hg] Dr. Renee Marshall Work Phone: 7(789)187-701873 [place] [address] 03-27-2023 16:09-0400 Systolic blood pressure 99 mm[Hg] Dr. Renee Marshall Work Phone: 2(598)749-726173 [place] [address] 03-19-2023 16:11-0400 Body height 149.[address] Renee Marshall Work Phone: 5(730)654-465173 [place] [address] 03-19-2023 16:10-0400 Body mass index (BMI) [Ratio] 32.1 kg/m2 Dr. Renee Marshall Work Phone: 7(395)957-892773 [place] [address] 03-19-2023 16:10-0400 Body weight 72.[address] Renee Marshall Work Phone: 1(474)672-293973 [place] [address] 03-19-2023 16:10-0400 Diastolic blood pressure 66 mm[Hg] Dr. Renee Marshall Work Phone: 6(139)250-268573 [place] [address] 03-19-2023 16:10-0400 Systolic blood pressure 99 mm[Hg] Dr. Renee Marshall Work Phone: 3(751)201-743073 [place] [address] 03-06-2023 15:14-0400 Body mass index (BMI) [Ratio] 31.5 kg/m2 Dr. Renee Marshall Work Phone: 2(134)130-594873 [place] [address] 03-06-2023 15:14-0400 Body weight 70.[address] Renee Marshall Work Phone: [facility] 03-06-2023 15:14-0400 Diastolic blood pressure 66 mm[Hg] Dr. Renee Marshall Work Phone: [facility] 03-06-2023 15:14-0400 Systolic blood pressure 112 mm[Hg] Dr. Renee Marshall Work Phone: [facility] 02-20-2023 15:22-0400 Body weight 69.[address] Renee Marshall Work Phone: [facility] 02-20-2023 15:22-0400 Diastolic blood pressure 64 mm[Hg] Dr. Renee Marshall Work Phone: [facility] 02-20-2023 15:22-0400 Systolic blood pressure 101 mm[Hg] Dr. Renee Marshall Work Phone: [facility] 02-20-2023 15:17-0400 Body height 149.[address] Renee Marshall Work Phone: [facility] 02-20-2023 15:17-0400 Body mass index (BMI) [Ratio] 31.1 kg/m2 Dr. Renee Marshall Work Phone: [facility] 02-13-2023 17:09-0400 Body height 149.86 cm SANITATION INSPECTOR-C Armida [place] SANITATION INSPECTOR Work Phone: [facility] 02-13-2023 17:09-0400 Body mass index (BMI) [Ratio] 30.9 kg/m2 SANITATION INSPECTOR-C [place] SANITATION INSPECTOR Work Phone: [facility] 02-13-2023 17:09-0400 Body weight 69.39 kg SANITATION INSPECTOR-C Armida [place] SANITATION INSPECTOR Work Phone: [facility] 02-13-2023 17:05-0400 Diastolic blood pressure 63 mm[Hg] SANITATION INSPECTOR-C Arm[place] SANITATION INSPECTOR Work Phone: [facility] 02-13-2023 17:05-0400 Heart rate 88 /min SANITATION INSPECTOR-C Armida Brodie SANITATION INSPECTOR Work Phone: [facility] 02-13-2023 17:05-0400 Systolic blood pressure 97 mm[Hg] SANITATION INSPECTOR-C [place] SANITATION INSPECTOR Work Phone: [facility] 02-13-2023 17:04-0400 Body temperature 98.3 [degF] SANITATION INSPECTOR-C [place] SANITATION INSPECTOR Work Phone: [facility] 02-06-2023 14:05-0400 Body mass index (BMI) [Ratio] 30.5 kg/m2 SANITATION INSPECTOR-C [place] SANITATION INSPECTOR Work Phone: [facility] 02-06-2023 14:05-0400 Body weight 68.6 kg SANITATION INSPECTOR-C Armida Brodie SANITATION INSPECTOR Work Phone: [facility] 02-06-2023 14:05-0400 Diastolic blood pressure 73 mm[Hg] SANITATION INSPECTOR-C Armida Brodie SANITATION INSPECTOR Work Phone: [facility] 02-06-2023 14:05-0400 Systolic blood pressure 109 mm[Hg] SANITATION INSPECTOR-C Armida Brodie SANITATION INSPECTOR Work Phone: [facility] 01-21-2023 15:35-0400 Body height 149.86 cm SANITATION INSPECTOR-C Armida Brodie SANITATION INSPECTOR Work Phone: [facility] 01-21-2023 15:35-0400 Body mass index (BMI) [Ratio] 30.5 kg/m2 SANITATION INSPECTOR-C Armida Brodie SANITATION INSPECTOR Work Phone: [facility] 01-21-2023 15:35-0400 Body weight 68.57 kg SANITATION INSPECTOR-C [place]ida [place] SANITATION INSPECTOR Work Phone: [facility] 01-21-2023 15:35-0400 Diastolic blood pressure 70 mm[Hg] SANITATION INSPECTOR-C Armida [place] SANITATION INSPECTOR Work Phone: [facility] 01-21-2023 15:35-0400 Systolic blood pressure 109 mm[Hg] LAUREANO Calloway NP Work Phone: [facility] 01-09-2023 15:36-0400 Body height 149.[address] Karrie Roldan Work Phone: [facility] 01-09-2023 15:36-0400 Body mass index (BMI) [Ratio] 29.9 kg/m2 Dr. Karrie Roldan Work Phone: [facility] 01-09-2023 15:36-0400 Body weight 67.[address] Karrie Roldan Work Phone: [facility] 01-09-2023 15:36-0400 Diastolic blood pressure 70 mm[Hg] Dr. Karrie Roldan Work Phone: [facility] 01-09-2023 15:36-0400 Systolic blood pressure 104 mm[Hg] Dr. Karrie Roldan Work Phone: [facility] 12-12-2022 14:14-0400 Body mass index (BMI) [Ratio] 28.7 kg/m2 Dr. Karrie Roldan Work Phone: [facility] 12-12-2022 14:14-0400 Body weight 64.[address] Karrie Roldan Work Phone: [facility] 12-12-2022 14:14-0400 Diastolic blood pressure 67 mm[Hg] Dr. Karrie Roldan Work Phone: [facility] 12-12-2022 14:14-0400 Systolic blood pressure 104 mm[Hg] Dr. Karrie Roldan Work Phone: [facility] 11-12-2022 10:55-0500 Body height 149.[address] Karrie Roldan Work Phone: [facility] 11-12-2022 10:55-0500 Body mass index (BMI) [Ratio] 27 kg/m2 Dr. Karrie Roldan Work Phone: [facility] 11-12-2022 10:55-0500 Body weight 60.[address] Karrie Roldan Work Phone: [facility] 11-12-2022 10:55-0500 Diastolic blood pressure 60 mm[Hg] Dr. Karrie Roldan Work Phone: [facility] 11-12-2022 10:55-0500 Systolic blood pressure 94 mm[Hg] Dr. Karrie Roldan Work Phone: [facility] 09-18-2022 16:16-0500 Body mass index (BMI) [Ratio] 25.9 kg/m2 Dr. Karrie Roldan Work Phone: [facility] 09-18-2022 16:16-0500 Body weight 58.[address] Karrie Roldan Work Phone: [facility] 09-18-2022 16:16-0500 Diastolic blood pressure 75 mm[Hg] Dr. Karrie Roldan Work Phone: [facility] 09-18-2022 16:16-0500 Systolic blood pressure 104 mm[Hg] Dr. Karrie Roldan Work Phone: [facility] Encounters Encounter Date Encounter Type Care Provider Facility Start: 11-22-2024 End: 11-22-2024 amb[facility] Start: 11-22-2024 Encounter for gynecological examination (general) (routine) without abnormal findings [facility] Start: 06-13-2024 Encounter for gynecological examination (general) (routine) without abnormal findings Renee Marshall [facility] Start: 06-13-2024 End: 06-13-2024 ambulatory Renee Marshall [facility] Start: 04-22-2023 Non-patient / Non-visit Dr. Kathi Marshall Work Phone: [facility] Start: 04-21-2023 Non-patient / Non-visit Dr. Kathi Marshall Work Phone: [facility] Start: 04-19-2023 End: 04-22-2023 Evaluation and management of inpatient Dr. Renee Marshall Work Phone: [facility] Work Phone: Start: 04-16-2023 End: 04-16-[address] Renee Marshall Work Phone: [facility] Work Phone: Start: 04-16-2023 End: 04-16-[address] Renee Marshall Work Phone: [facility]-Laboratory, Specimen Work Phone: Start: 04-16-2023 End: 04-16-[address] Renee Marshall Work Phone: [facility] Work Phone: Start: 04-10-2023 End: 04-10-[address] Renee Marshall Work Phone: [facility] Work Phone: Start: 04-03-2023 End: 04-03-[address] Renee Marshall Work Phone: [facility] Work Phone: Start: 04-02-2023 End: 04-02-[address] Renee Marshall Work Phone: [facility] Work Phone: Start: 03-27-2023 End: 03-27-[address] Renee Marshall Work Phone: [facility] Work Phone: Start: 03-19-2023 End: 03-19-[address] Renee Marshall Work Phone: [facility] Work Phone: Start: 03-19-2023 End: 03-19-[address] Renee Marshall Work Phone: [facility] Work Phone: Start: 03-06-2023 End: 03-06-[address] Renee Marshall Work Phone: [facility] Work Phone: Start: 02-20-2023 Non-patient / Non-visit Dr. Kathi Marshall Work Phone: [facility] Start: 02-20-2023 End: 02-20-[address] Renee Marshall Work Phone: [facility] Work Phone: Start: 02-20-2023 End: 02-20-[address] Renee Marshall Work Phone: [facility] Start: 02-13-2023 Non-patient / Non-visit Dr. Kathi Marshall Work Phone: [facility] Start: 02-13-2023 End: 02-13-2023 ambulatory SANITATION INSPECTOR-C Armida Calloway SANITATION INSPECTOR Work Phone: [facility] Work Phone: Start: 02-13-2023 End: 02-13-2023 Patient encounter procedure SANITATION INSPECTOR-C Armida Brodie SANITATION INSPECTOR Work Phone: [facility] Start: 02-06-2023 End: 02-06-2023 Patient encounter procedure SANITATION INSPECTOR-C Armida [place] SANITATION INSPECTOR Work Phone: [facility] Start: 01-21-2023 End: 01-21-2023 ambulatory SANITATION INSPECTOR-David Calloway SANITATION INSPECTOR Work Phone: [facility] Work Phone: Start: 01-21-2023 End: 01-21-2023 Patient encounter procedure SANITATION INSPECTOR-David Calloway SANITATION INSPECTOR Work Phone: [facility] Start: 01-09-2023 End: 01-09-[address] Karrie Roldan Work Phone: [facility] Work Phone: Start: 01-09-2023 End: 01-09-[address] Karrie Roldan Work Phone: [facility] Start: 12-12-2022 End: 12-12-[address] Karrie Roldan Work Phone: [facility] Start: 11-24-2022 End: 11-24-[address] Karrie Roldan Work Phone: [facility] Work Phone: Start: 11-24-2022 End: 11-24-[address] Karrie Roldan Work Phone: [facility]Outpatient Pav[facility] Ultrasound Start: 11-12-2022 End: 11-12-[address] Karrie Roldan Work Phone: [facility] Work Phone: Start: 11-12-2022 End: 11-12-[address] Karrie Roldan Work Phone: [facility] Start: 09-18-2022 End: 09-18-[address] Karrie Roldan Work Phone: [facility]-Laboratory, Specimen Start: 09-18-2022 End: 09-18-[address] Karrie Roldan Work Phone: [facility] Procedures Date Procedure Procedure Detail Performing Clinician Start: 04-02-[address] Renee Marshall Work Phone: Start: 03-19-2023 Group B Streptococcu s Culture Dr. Renee Marshall Work Phone: Start: 01-09-2023 Cytopathology proced ure, preparation of smear, genital source Dr. Renee Marshall Work Phone: Start: 01-09-2023 Investigation of tra nsfusion reaction Dr. Renee Marshall Work Phone: Start: 11-24-2022 Ultrasonography in f irst trimester Dr. Karrie Roldan Work Phone: Cytopathology proced ure, preparation of smear, genital source Dr. Karrie Roldan Work Phone: Investigation of tra nsfusion reaction Dr. Karrie Roldan Work Phone: Urine culture Dr. Karrie Antunez Work Phone: Plan of Treatment Date Care Activity Detail Author Start: 04-22-2023 Patient discharge [facility] Start: 04-21-2023 Administration of medication [facility] Start: 04-21-2023 Application of ice c ollar, cap or bag [facility] Start: 04-21-2023 Catheterization of vein [facility] Start: 04-21-2023 Introduction of urin nohelia catheter [facility] Start: 04-21-2023 Measuring intake and output [facility] Start: 04-21-2023 Notification of physician [facility] Start: 04-21-2023 Procedure discontinued [facility] Start: 04-21-2023 Provision of activit y privileges [facility] Start: 04-21-2023 Vital signs measurements [facility] Start: 04-21-2023 End: 04-22-2023 [facility] Start: 04-21-2023 Consultation [facility] Start: 04-19-2023 Admission procedure [facility] Start: 04-19-2023 Verification routine [facility] Start: 04-16-2023 Eval c/v amniotic fl uid protein qual ea specimen EVAL AMNIOTIC FLUID PROTEIN [facility] Start: 02-13-2023 Nonstress test [facility] Start: 02-13-2023 Obstetric monitoring [facility] Start: 02-13-2023 Vital signs measurements [facility] Start: 02-13-2023 [facility] Bilirubin measuremen t, urine [facility] Drugs identified in Urine by Screen method [facility] anatomy study [facility] Hemoglobin [Presence ] in Urine [facility] HIV 1+2 Ab+HIV1 p24 Ag [Presence] in Serum or Plasma by Immunoassay [facility] Measurement of keton es in urine using dipstick [facility] Microscopic urinalysis [facility] Patient Education [facility] Work Phone: [facility] Work Phone: pH of Urine [facility] Procedure [facility] Specific gravity of Urine [facility] Treponema sp Ab [Pre sence] in Serum [facility] Urinalysis, blood, qualitative [facility] Urine dipstick for glucose [facility] Urine dipstick for leukocyte esterase [facility] Urine dipstick for nitrite [facility] Urine dipstick for protein [facility] Urine examination [facility] Urine microscopy: epithelial cells [facility] Urine Microscopy: wh ite cells [facility] Urobilinogen [Presen ce] in Urine [facility] Payers Date Payer Category Payer Self-pay 2023 Private Health Insurance [id number] 1995 Unknown [id number] Unknown [employer] PACKAGE PLAN [id number] Unknown [id number] Social History Date Type Detail Facility Start: 11-12-2022 End: 04-19-2023 Tobacco smoking status NHIS Unknown if ever smoked [facility] Start: 1995 Sex Assigned At Female W [facility] Goals Date Patient Goal Desired Activity /State Clinical Notes 09-18-2022 to 04-22-2023 Note Date & Type Note Facility 04-22-2023 Progress note Note Date/Time April 22, 2023 7:2 9am [facility] Medical Records Department [address] [place] [id number] Progress Note - OBGYN 04/22/2326 MR#: [id number] Acct: [id number] Name: IBETH EDMOND Rep #:[id number] : 1995 28 From: Afshan Perry CNM PCP: Care Physician,No Primary Status :ADM IN Location: [place] [address]-1 Subjective Subjective Patient doing well without complaints. Tolerating PO. Ambulating and voiding without difficulty. Feeding concerns, seeing LC, currently using nipple shield and supplementing with formula, is considering transitioning to formula when sheis discharged. Denies chest pain, shortness of breath, calf pain/swelling, fevers, chills, lightheadedness. Objective Data Objective Data Vital Signs: Vital Signs Temp Pulse Resp BP Pulse Ox O2 Del Method 97 F L 62 18 97/55 L 96 Room Air 04/22/23 03:48 04/22/23 03:48 04/22/23 03:48 04/22/23 03:48 04/21/23 02:20 04/22/23 03:48 Oxygen Delivery Method Room Air Weight: 161 lb Body Mass Index (BMI) 32.5 Intake & Output: Intake and Output for Last 24 Hours 04/20/23 04/21/23 04/22/23 23:59 23:59 23:59 Intake Total 3786.52 / 3786.52 2598.33 / 2598.33 Output Total 850 / 850 500 / 500 Balance 2936.52 / 2936.52 2098.33 / 2098.33 Lab / Micro Data 04/19/23 20:10 Physical Exam Const alert and no apparent distress Chest inspection of chest normal Nipple/Areola: nipples/areola normal Resp normal respiratory effort and no retractions Effort and Inspection: able to speak in complete sentences Cardio regular rate and regular rhythm GI GI Narrative: fundus firm, below u, no clots. Extremity normal to inspection, no calf tenderness and no pedal edema Skin no rashes or lesions noted Psych mental status grossly normal Assessment & Plan (1) Maternal fever affecting labor: COMMENT: amp and gent given during pushing, additional dose of amp x 1 . monitor. no fevers x24 hours. (2) Vaginal delivery: COMMENT: SM IOL postdates girl julianna 41 elevated temp given antibiotics in labor mec pushed 4 hours PLAN: Plan s/p PPD # 1 1. routine post delivery care 2. breast feeding- support given 3. rh positive 4. rubella immune 5. stable for d/c today 04/22/23 0729 <Electronically signed by Afshan Perry CNM> Cosigner Signature (if applicable): CC: ~ Signed [facility] Work Phone: 1(389) 625-175508-08-2023 Discharge summary Author Renee Marshall [facility] April 21, 2023 3:21am Note Date/Time April 21, 2023 3:2 1am [facility] Medical Records Department [address] [place] [address] Instructions for Home/Discharge Instructions 04/21/23 0321 MR#: [id number] Acct: [id number] Name: MAYITOIBETH MCGREGOR Rep #:[id number] : 1995 28 From: Renee laird MD PCP: Care Physician,No Primary Status :ADM IN Discharge Instructions Diet Discharge Diet: No restrictions Activity Discharge Activity: Return to Normal Activity, May Not Drive (while taking narcotic pain medications.) and May Shower May resume sexual activity in: 4-6 weeks Dressing / Incision Call your doctor if your incision/area has: Continuous Slow Oozing, Sudden Increased Bleeding, Increased Pain/ Swelling, Increased Redness and Foul Smelling Discharge Follow Up Care Please Follow Up With: Renee Marshall MD When: Call [phone] to make an appointment with your doctor in 6 weeks. If you had elevated blood pressure or 4th degree laceration, you will need to be seen in 2 weeks. Test Results: Test results from this visit will be discussed in further detail at your follow- up appointment, if applicable. Discharge Plan Admission Admit Date/Time: 04/19/23 19:00 Attending Provider: Renee Marshall Primary Care Provider: Alva PhysicianDeann Primary Discharge Orders/Prescriptions Prescriptions: No Action PNV-[place] 28-1-300 mg capsule 1 cap PO DAILY Referrals / Follow Up: Alva Physician,Deann Primary [Primary Care Provider] - 04/21/23 0321<Electronically signed by Renee Marshall MD>Renee Marshall MD CC: No Primary Care Physician ~ Signed [facility] Work Phone: [phone]) 940-242008-08-2023 History and physical note Author Renee Marshall [facility] April 21, 2023 3:16am Note Date/Time April 21, 2023 3:1 6am [facility] Medical Records Department [address] [place] [address] H&P 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 no vb lof good fm no regular ctx Maternal Data Information CIARRA Calculator Estimated Delivery Date Method Current WG Current Estimate 04/12/23 LMP (Certain) 41w 2d PFSH PFSH Medical History (Updated 04/19/23 @ 20:25 by Amairani Ann) Breast lump Left inguinal pain Pain in left leg Varicose veins during Home Medications multivit-min no.71-iron fum 28 mg-folate no.1 1 mg-dha 300 mg capsule (PNV- [place]) 1 cap PO DAILY 08/28/22 [History Last Taken 04/18/23] Allergy/AdvReac Type Severity Reaction Status Date / Time No Known Allergies Allergy Verified 04/19/23 20:06 Family History Father Diabetes Type II Surgical History Hx of appendectomy Social History adopted: No household members: spouse housing: house current occupational status: unemployed current occupational exposures/hazards: No pets and animals: Yes pets and animals: dog(s) history of recent travel: Yes ([place]) out of state: Yes out of country: No sexually active: Yes Smoking Status: Never smoker alcohol intake: never substance use type: does not use well-balanced diet: about half the time caffeine: Yes Type: carbonated beverages Number of servings: 1 eating out: 1-3 times/week during the past year weight has: remained stable what type of physical activity do you participate in: none olga/latter-day: None seatbelt use: always do you feel safe at home: Yes additional social history: [employer] work History 1 Elective abortions Hx Para 0 Spontaneous abortions Hx # Term Pregnancies Ectopic pregnancies Hx # Pregnancies Multiple births # of living children Visit Details Expected Delivery Route/Plan Labor Preferences- CB/BF classes: encouraged labor support person: Darian labor intervention preferences: pain management options preferred: [] cut cord/dad catch: [] : [] PP control planned: discussed possible routes of delivery and associated risks: [] special requests: [] Plans Covid status: unvaccinated Flu vaccine: discussed Tdap vaccine: [] Rhogam: n.a LARC form signed: completed, declines larc movement and labor precautions reviewed. Problem list reviewed and updated with the most current plan of care details and appropriate orders placed. Relevant counseling for the gestational age provided. Continue routine care and follow up unless otherwise noted in visit notes/problem list details OB Flowsheet Initial Weight: Not Recorded Date -?-?-?-?-?-?-?-?-?-?-?-?- EGA Weight BP Urine Prot -?-?-?-?-?-?-?-?-?-?-?-?- Glucose FHR FuHt Pres Dilation -?-?-?-?-?-?-?-?-?-?-?-?- Effaced St Visit Note 09/18/22 -?-?-?-?-?-?-?-?-?-?-?-?- 10w 4d 128 lb 4 oz 104/75 -?-?-?-?-?-?-?-?-?-?-?-?- 168 -?-?-?-?-?-?-?-?-?-?-?-?- JV- Single live IUP consistent with 10 weeks 6 days and LMP. Declines NIPT and carrier. New to area, moved from [place]. 11/12/22 -?-?-?-?-?-?-?-?-?-?-?-?- 18w 3d 134 lb 94/60 Negative -?-?-?-?-?-?-?-?-?-?-?-?- Negative 154 -?-?-?-?-?-?-?-?-?-?-?-?- MH-No Vb, LOF. F eels well, nausea improved. Anatomy US ordered. 12/12/22 -?-?-?-?-?-?-?-?-?-?-?-?- 22w 5d 142 lb 4 oz 104/67 Nega tive -?-?-?-?-?-?-?-?-?-?-?-?- Negative 140 -?-?-?-?-?-?-?-?-?-?-?-?- SM- no vb lof go od fm no regular ctx 01/09/23 -?-?-?-?-?-?-?-?-?-?-?-?- 26w 5d 148 lb 6 oz 104/70 Nega tive -?--?-?-?-?-?-?-?-?-?-?-?- Negative 145 29 -?-?-?-?-?-?-?-?-?-?-?-?- JV- pt has burni ng and irritation of the vaginal area. on exam the vaginal mucosa is erythematous and edematous and there is a white discharge present. she has already tried monistat. will try diflucan. vaginal culture ordered. 01/21/23 -?-?-?-?-?-?-?-?-?-?-?-?- 28w 3d 151 lb 3 oz 109/70 Nega tive -?-?-?-?-?-?-?-?-?-?-?-?- Negative 150 30 -?-?-?-?-?-?-?-?-?-?-?-?- JV- vaginal disc harge resolved. no complaints today. normal GCT. 02/06/23 -?-?-?-?-?-?-?-?-?-?-?-?- 30w 5d 151 lb 4 oz 109/73 Nega tive -?-?-?-?-?-?-?-?-?-?-?-?- Negative 148 30 -?-?-?-?-?-?-?-?-?-?-?--?- LC- no concerns. good fm, no lof/vb/ctx. reviewed labor pain options LC- no concerns. good fm, no lof/vb/ctx. reviewed labor pain options. larc signed 02/20/23 -?-?-?-?-?-?-?-?-?-?-?-?- 32w 5d 154 lb 154 lb 101/64 101/64 Negative -?-?-?-?-?-?-?-?-?-?-?-?- Negative 145 32 -?-?-?-?-?-?-?-?-?-?-?-?- JV- pt complains of pain and swelling of the left inguinal area. on exam she is extremely tender and guarding of the area. will order scan to rule out clot 03/06/23 -?-?-?-?-?-?-?-?-?-?-?-?- 34w 5d 156 lb 4 oz 112/66 Nega tive -?-?-?-?-?-?-?-?-?-?-?-?- Negative 140 35 -?-?-?-?-?-?-?-?-?-?-?-?- kw-+ fm. no vb/l of/ctx. AG on GBS swab. US results reviewed from doppler. 03/19/23 -?-?-?-?-?-?-?-?-?-?-?-?- 36w 4d 159 lb 99/66 Negative -?-?-?-?-?-?-?-?-?-?-?-?- Negative 143 37 -?-?-?-?-?-?-?-?-?-?-?-?- JV- no large sonal h of fluid,or dec fm. wants doc only for delivery. gbs collected. 03/27/23 -?-?-?-?-?-?-?-?-?-?-?-?- 37w 5d 159 lb 4 oz 99/66 Nega tive -?-?-?-?-?-?-?-?-?-?-?-?- Negative 140 38 Cephalic 0 -?-?-?-?-?-?-?-?-?-?-?-?- Sm- no vb lof go od fm no regular ctx 04/03/23 -?-?-?-?-?-?-?-?-?-?-?-?- 38w 5d 160 lb 96/64 -?-?-?-?-?-?-?-?-?-?-?-?- 135 38 Cephalic 1 -?-?-?-?-?-?-?-?-?-?-?-?- 50 -3 JV- no lof , vaginal bleeding, or dec fm. no complaints. labor precautions discussed. 04/10/23 -?-?-?-?-?-?-?-?-?-?-?-?- 39w 5d 161 lb 6 oz 103/66 Nega tive -?-?-?--?-?-?-?-?-?-?-?-?- Negative 140 37 Cephalic 1 -?-?-?-?-?-?-?-?-?-?-?-?- 30 -3 JV- KWABENA sh owed greatest pocket was 8 cm. we discussed IOL however not scheduled as of yet. will bring back on thrusday next week and aim for thursday or thursday night for cytotec if no cervical change. pt is doc only. 04/16/23 -?-?-?-?-?-?-?-?-?-?-?-?- 40w 4d 162 lb 4 oz 103/70 Nega tive -?-?-?-?-?-?-?-?-?-?-?-?- Negative 147 39 Cephalic 0 .5 -?-?-?-?-?-?-?-?-?-?-?-?- 50 -2 JV- pt sta yoni that she experienced one gush of fluid yesterday that did not continue. no bleeding or persistent contractions. rom plus ordered. IOL set up for thursday, NST FHR Rate Baby A Baseline: 130 Variability:: Moderate Accelerations:: 15 x 15 Decelerations:: None NST Reactive:: Yes FHR Category:: Category I Uterine Activity:: irregular ROS Constitutional Constitutional: Reports systems reviewed and no addt'l complaints, except as documented Eyes Eyes: Denies change in vision ENT HEENT: Reports systems reviewed and no addt'l complaints, except as documented; Denies headache(s) Cardiovascular Cardiovascular: Reports systems reviewed and no addt'l complaints, except as documented; Denies chest pain or dyspnea Respiratory/Chest Respiratory/Chest: Reports systems reviewed and no addt'l complaints, except as documented Gastrointestinal Gastrointestinal: Reports systems reviewed and no addt'l complaints, except as documented; Denies abdominal pain Genitourinary Genitourinary: Reports systems reviewed and no addt'l complaints, except as documented, contractions Details: present (irregular) and movement Details: present; Denies dysuria or genital lesions Musculoskeletal Musculoskeletal: Reports systems reviewed and no addt'l complaints, except as documented Neurologic Neurologic: Reports systems reviewed and no addt'l complaints, except as documented Endocrine Endocrinology: Reports systems reviewed and no addt'l complaints, except as documented Vital Signs Vital Signs Vital Signs: 04/20/23 04:04 04/20/23 04:04 04/20/23 04:04 Temperature Temperature Source Pulse Rate 64 Blood Pressure 87/52 L BP Systolic 87 BP Diastolic 52 Pulse Ox 96 04/20/23 04:04 04/20/23 04:06 04/20/23 04:06 Temperature 98.1 F Temperature Source Pulse Rate 65 Blood Pressure 86/50 L BP Systolic 86 BP Diastolic 50 Pulse Ox 04/20/23 04:23 04/20/23 04:23 04/20/23 06:25 Temperature Temperature Source Pulse Rate 65 Blood Pressure 96/48 L 95/61 BP Systolic 96 95 BP Diastolic 48 61 Pulse Ox 04/20/23 06:25 04/20/23 07:21 04/20/23 07:22 Temperature 97.9 F Temperature Source Pulse Rate 75 Blood Pressure 91/51 L BP Systolic 91 BP Diastolic 51 Pulse Ox 04/20/23 07:22 04/20/23 07:21 04/20/23 07:21 Temperature Temperature Source Temporal Pulse Rate 69 Blood Pressure BP Systolic BP Diastolic Pulse Ox 96 04/20/23 07:21 04/20/23 09:55 04/20/23 09:56 Temperature 97.9 F 98.1 F Temperature Source Pulse Rate Blood Pressure 83/54 L BP Systolic 83 BP Diastolic 54 Pulse Ox 04/20/23 09:56 04/20/23 09:56 04/20/23 09:55 Temperature Temperature Source Temporal Pulse Rate 69 Blood Pressure BP Systolic BP Diastolic Pulse Ox 94 04/20/23 09:56 04/20/23 09:56 04/20/23 09:55 Temperature 98.0 F Temperature Source Pulse Rate 66 Blood Pressure BP Systolic BP Diastolic Pulse Ox 95 04/20/23 11:01 04/20/23 11:01 04/20/23 11:01 Temperature 98.4 F Temperature Source Pulse Rate 70 Blood Pressure 89/53 L BP Systolic 89 BP Diastolic 53 Pulse Ox 04/20/23 11:01 04/20/23 11:01 04/20/23 11:01 Temperature Temperature Source Temporal Pulse Rate Blood Pressure BP Systolic BP Diastolic Pulse Ox 97 97 04/20/23 11:01 04/20/23 12:06 04/20/23 12:06 Temperature 98.4 F 97.2 F L Temperature Source Pulse Rate 59 L Blood Pressure BP Systolic BP Diastolic Pulse Ox 04/20/23 12:06 04/20/23 12:11 04/20/23 12:11 Temperature Temperature Source Pulse Rate 68 Blood Pressure BP Systolic BP Diastolic Pulse Ox 100 100 04/20/23 12:12 04/20/23 12:12 04/20/23 12:16 Temperature Temperature Source Pulse Rate 72 64 Blood Pressure 106/73 BP Systolic 106 BP Diastolic 73 Pulse Ox 04/20/23 12:16 04/20/23 12:18 04/20/23 12:18 Temperature Temperature Source Pulse Rate 63 Blood Pressure 101/58 L BP Systolic 101 BP Diastolic 58 Pulse Ox 98 04/20/23 12:21 04/20/23 12:21 04/20/23 12:23 Temperature Temperature Source Pulse Rate 74 Blood Pressure 92/50 L BP Systolic 92 BP Diastolic 50 Pulse Ox 97 04/20/23 12:23 04/20/23 12:26 04/20/23 12:26 Temperature Temperature Source Pulse Rate 80 78 Blood Pressure BP Systolic BP Diastolic Pulse Ox 96 04/20/23 12:27 04/20/23 12:27 04/20/23 12:31 Temperature Temperature Source Pulse Rate 77 80 Blood Pressure 87/52 L BP Systolic 87 BP Diastolic 52 Pulse Ox 04/20/23 12:31 04/20/23 12:34 04/20/23 12:34 Temperature Temperature Source Pulse Rate 76 Blood Pressure 86/51 L BP Systolic 86 BP Diastolic 51 Pulse Ox 96 04/20/23 12:36 04/20/23 12:36 04/20/23 12:39 Temperature Temperature Source Pulse Rate 76 Blood Pressure 89/52 L BP Systolic 89 BP Diastolic 52 Pulse Ox 96 04/20/23 12:39 04/20/23 12:41 04/20/23 12:41 Temperature Temperature Source Pulse Rate 74 72 Blood Pressure BP Systolic BP Diastolic Pulse Ox 97 04/20/23 12:42 04/20/23 12:42 04/20/23 13:22 Temperature Temperature Source Pulse Rate 75 Blood Pressure 88/51 L 76/42 L BP Systolic 88 76 BP Diastolic 51 42 Pulse Ox 04/20/23 13:22 04/20/23 13:21 04/20/23 13:33 Temperature Temperature Source Pulse Rate 51 L Blood Pressure 87/54 L BP Systolic 87 BP Diastolic 54 Pulse Ox 94 04/20/23 13:33 04/20/23 13:38 04/20/23 13:38 Temperature Temperature Source Pulse Rate 54 L 67 Blood Pressure 86/51 L BP Systolic 86 BP Diastolic 51 Pulse Ox 04/20/23 13:43 04/20/23 13:43 04/20/23 13:48 Temperature Temperature Source Pulse Rate 53 L Blood Pressure 89/53 L 84/51 L BP Systolic 89 84 BP Diastolic 53 51 Pulse Ox 04/20/23 13:48 04/20/23 13:49 04/20/23 14:35 Temperature 96.8 F L Temperature Source Pulse Rate 60 Blood Pressure 86/51 L BP Systolic 86 BP Diastolic 51 Pulse Ox 04/20/23 14:35 04/20/23 14:35 04/20/23 14:35 Temperature Temperature Source Pulse Rate 61 62 Blood Pressure BP Systolic BP Diastolic Pulse Ox 95 04/20/23 14:35 04/20/23 14:35 04/20/23 16:34 Temperature 97.0 F L Temperature Source Tympanic Pulse Rate Blood Pressure 79/46 L BP Systolic 79 BP Diastolic 46 Pulse Ox 04/20/23 16:34 04/20/23 16:33 04/20/23 16:34 Temperature 97.7 F L Temperature Source Pulse Rate 58 L Blood Pressure 76/44 L BP Systolic 76 BP Diastolic 44 Pulse Ox 04/20/23 16:34 04/20/23 16:44 04/20/23 16:44 Temperature Temperature Source Pulse Rate 61 62 Blood Pressure 88/61 L BP Systolic 88 BP Diastolic 61 Pulse Ox 04/20/23 16:44 04/20/23 16:44 04/20/23 17:36 Temperature 97.2 F L Temperature Source Temporal Pulse Rate Blood Pressure 88/60 L BP Systolic 88 BP Diastolic 60 Pulse Ox 04/20/23 17:36 04/20/23 17:36 04/20/23 18:42 Temperature 97.3 F L Temperature Source Pulse Rate 68 Blood Pressure 85/49 L BP Systolic 85 BP Diastolic 49 Pulse Ox 04/20/23 18:42 04/20/23 18:42 04/20/23 18:42 Temperature 98.4 F Temperature Source Pulse Rate 73 75 Blood Pressure BP Systolic BP Diastolic Pulse Ox 04/20/23 18:42 04/20/23 19:15 04/20/23 19:16 Temperature 98.4 F Temperature Source Pulse Rate Blood Pressure 102/59 L BP Systolic 102 BP Diastolic 59 Pulse Ox 100 04/20/23 19:16 04/20/23 19:15 04/20/23 20:02 Temperature Temperature Source Pulse Rate 78 Blood Pressure 79/53 L BP Systolic 79 BP Diastolic 53 Pulse Ox 99 04/20/23 20:02 04/20/23 20:01 04/20/23 20:45 Temperature 98.1 F Temperature Source Pulse Rate 67 Blood Pressure 87/55 L BP Systolic 87 BP Diastolic 55 Pulse Ox 04/20/23 20:45 04/20/23 21:06 04/20/23 21:06 Temperature Temperature Source Pulse Rate 71 80 Blood Pressure 94/60 BP Systolic 94 BP Diastolic 60 Pulse Ox 04/20/23 21:06 04/20/23 21:06 04/20/23 22:19 Temperature 98.6 F Temperature Source Pulse Rate 102 H Blood Pressure BP Systolic BP Diastolic Pulse Ox 100 04/20/23 22:19 04/20/23 22:20 04/20/23 22:20 Temperature 100.0 F H Temperature Source Pulse Rate Blood Pressure 104/59 L BP Systolic 104 BP Diastolic 59 Pulse Ox 100 04/20/23 22:20 04/20/23 23:03 04/20/23 23:03 Temperature 99.1 F Temperature Source Pulse Rate 80 Blood Pressure 123/63 H BP Systolic 123 BP Diastolic 63 Pulse Ox 04/20/23 23:03 04/21/23 00:04 04/21/23 00:05 Temperature 101.5 F H Temperature Source Pulse Rate 103 H Blood Pressure 98/53 L BP Systolic 98 BP Diastolic 53 Pulse Ox 04/21/23 00:05 04/21/23 00:39 04/21/23 00:39 Temperature 100.4 F H Temperature Source Oral Pulse Rate 76 Blood Pressure BP Systolic BP Diastolic Pulse Ox 04/21/23 00:54 04/21/23 00:56 04/21/23 00:56 Temperature Temperature Source Oral Pulse Rate 82 Blood Pressure 103/52 L BP Systolic 103 BP Diastolic 52 Pulse Ox 04/21/23 00:54 04/21/23 00:54 04/21/23 02:20 Temperature 100.3 F H Temperature Source Pulse Rate Blood Pressure 101/58 L BP Systolic 101 BP Diastolic 58 Pulse Ox 99 04/21/23 02:20 04/21/23 02:20 04/21/23 02:20 Temperature 102.4 F H Temperature Source Pulse Rate 73 Blood Pressure BP Systolic BP Diastolic Pulse Ox 96 04/21/23 02:20 04/21/23 02:20 Temperature 100.2 F H Temperature Source Oral Pulse Rate Blood Pressure BP Systolic BP Diastolic Pulse Ox Weight Weight: 161 lb Body Mass Index (BMI) 32.5 Physical Exam Const alert, oriented x3, no apparent distress and healthy appearing HEENT normocephalic and moist oral mucous membranes Head and Scalp: atraumatic Neck full ROM, no lymphadenopathy, supple and thyroid normal General: trachea midline Lymph Lymphatic: no lymphadenopathy noted Chest inspection of chest normal Resp normal respiratory effort Cardio regular rate GI normal to inspection, nondistended, normoactive bowel sounds, soft to palpation and non-tender Inspection: gravid external exam normal Manual OB Exam: estimated gestational size appropriate, presentation cephalic, dilated, effaced and station Extremity normal to inspection General Extremity: Negative for edema Skin no rashes or lesions noted Neuro no focal motor deficits and deep tendon reflexes 2+ bilaterally Motor Exam: strength 5/5 throughout and clonus absent Psych mental status grossly normal Labs Labs Labs: Blood Type O POSITIVE Antibody Screen NEGATIVE Hct 36.7 % (37-47) L Hgb 12.0 g/dL (12.0-15.0) Obstetrics US Syphilis Total Ab Non-reactive Rubella IgG Antibody Reactive (Nonreactive) Hep Bs Antigen Non-Reactive (Nonreactive) Chlamydia DNA ([facility]) Negative (Negative) Neisseria gonorrhoeae DNA ([facility]) Negative (Negative) HIV 1&2 Antibody Non-Reactive (Nonreactive) Glucose 1 Hr 50 gm 103 mg/dL (70-140) Miscellaneous Test Assessment & Plan (1) : QUALIFIERS: Weeks of gestation: 38 weeks Qualified Code(s): Z3A.38 - 38 weeks gestation of COMMENT: GBS neg. anatomy nl, declines genetic & ntd, carrier testing (2) Supervision of high risk , antepartum: COMMENT: PRR , CIARRA 04/12/23 girl Julianna Darian wants doc only for delivery. PLAN: Plan admit cytotec then pitocin and arom clear fluid 04/21/23 0316 <Electronically signed by Renee Marshall MD> Cosigner Signature (if applicable): CC: Dr. Renee Marshall MD; No Primary Care Physician~ Signed [facility] Work Phone: [phone]) 227-798208-08-[address] [facility] 09-18-2022 NotePap Smear Specimen AdequacyJanuary 2022 5:22pmComment. Satisfactory for evaluation. Endocervical and/or squamous metaplasticcells (endocervical component)are present.[facility] INTER[facility]ACED A#[id number] Health Wadsworth - Rittman Medical CenterComment on above:Satisfactory for evaluation. Endocervical and/or squamous metaplasticcells (endocervical component)are present.09-18-2022 NotePap Smear Specimen AdequacyJanuary 2022 6:22pmComment.Satisfactory for evaluation. Endocervical and/or squamous metaplasticcells (endocervical component)are present.[facility] A#[id number] Health [facility] Comment on above:Satisfactory for evaluation. Endocervical and/or squamous metaplasticcells (endocervical component)are present.09-18-2022 NotePap Smear Specimen AdequacyJanuary 2022 6:22pmComment.Satisfactory for evaluation. Endocervical and/or squamous metaplasticcells (endocervical component)are present.[facility] INTER[facility]ED A#[id number] Health W[facility] - Rittman Medical CenterComment on above: Satisfactory for evaluation. Endocervical and/or squamous metaplasticcells (endocervical component)are present.Evaluation note* Diagnosis Onset Date Resolution Status acute Supervision of high risk , antepartum acute acute Supervision of high risk , antepartum acute [facility] Work Phone: Evaluation note* Diagnosis Onset Date Resolution Status acute Supervision of high risk , antepartum acute acute Supervision of high risk , antepartum acute acute Supervision of high risk , antepartum acute acute Supervision of high risk , antepartum acute [facility] Work Phone: Evaluation note* Diagnosis Onset Date Resolution Status acute Supervision of high risk , antepartum acute acute Supervision of high risk , antepartum acute acute Supervision of high risk , antepartum acute acute Supervision of high risk , antepartum acute acute Supervision of high risk , antepartum acute [facility] Work Phone: Evaluation note* Diagnosis Onset Date Resolution Status acute Supervision of high risk , antepartum acute acute Supervision of high risk , antepartum acute acute Supervision of high risk , antepartum acute acute Supervision of high risk , antepartum acute acute Supervision of high risk , antepartum acute acute Supervision of high risk , antepartum acute [facility] Work Phone: Evaluation note* Diagnosis Onset Date Resolution Status acute Supervision of high risk , antepartum acute acute Supervision of high risk , antepartum acute acute Supervision of high risk , antepartum acute acute Supervision of high risk , antepartum acute acute Supervision of high risk , antepartum acute Inguinal pain acute Left inguinal pain acute Pain in left leg acute acute Supervision of high risk , antepartum acute acute Supervision of high risk , antepartum acute [facility] Work Phone: Evaluation note* Diagnosis Onset Date Resolution Status resolved Supervision of high risk , antepartum resolved resolved Supervision of high risk , antepartum resolved resolved Supervision of high risk , antepartum resolved resolved Supervision of high risk , antepartum resolved Inguinal pain resolved Left inguinal pain resolved Pain in left leg resolved resolved Supervision of high risk , antepartum resolved resolved Supervision of high risk , antepartum resolved Inguinal pain resolved Left inguinal pain resolved Pain in left leg resolved resolved Supervision of high risk , antepartum resolved Inguinal pain resolved Left inguinal pain resolved Pain in left leg resolved resolved Supervision of high risk , antepartum resolved Pain in left leg resolved resolved Supervision of high risk , antepartum resolved Inguinal pain resolved Left inguinal pain resolved Pain in left leg resolved resolved Supervision of high risk , antepartum resolved Maternal fever affecting labor acute Vaginal delivery acute resolved Supervision of high risk , antepartum resolved [facility] Work Phone: Hospital Discharge instructions Additional Instructions return for bright red bleeding, loss of fluid, decreased movement or painful contractions. Discussed using support belt and comfort measures such as tylenol, warm baths/showers and rest.[facility] Work Phone: Chief Complaint and Reason for Visit Chief Complaint NEW OB 07-07-22 E ORDER 18 WK OB Reason for Visit Supervision of high risk , antepartum Supervision of high risk , antepartum Chief Complaint NEW OB 07-07-22 E ORDER 18 WK OB 20 WEEKS GROWTH Reason for Visit Supervision of high risk , antepartum Supervision of high risk , antepartum Chief Complaint NEW OB 07-07-22 E ORDER 18 WK OB 20 WEEKS GROWTH 22 WK OB EORDER 26 WK OB/GLUCOSE Reason for Visit Supervision of high risk , antepartum Supervision of high risk , antepartum Supervision of high risk , antepartum Supervision of high risk , antepartum Chief Complaint E ORDER 18 WK OB 20 WEEKS GROWTH 22 WK OB EORDER 26 WK OB/GLUCOSE E-ORDER 28 WK OB Reason for Visit Supervision of high risk , antepartum Supervision of high risk , antepartum Supervision of high risk , antepartum Supervision of high risk , antepartum Chief Complaint E ORDER 18 WK OB 20 WEEKS GROWTH 22 WK OB EORDER 26 WK OB/GLUCOSE E-ORDER 28 WK OB 30 wk ob R/OLABOR Reason for Visit Supervision of high risk , antepartum Supervision of high risk , antepartum Supervision of high risk , antepartum Supervision of high risk , antepartum Supervision of high risk , antepartum Chief Complaint E ORDER 18 WK OB 20 WEEKS GROWTH 22 WK OB EORDER 26 WK OB/GLUCOSE E-ORDER 28 WK OB 30 wk ob R/OLABOR R/OLABOR 32 wk ob RULE OUT DVT Reason for Visit Supervision of high risk , antepartum Supervision of high risk , antepartum Supervision of high risk , antepartum Supervision of high risk , antepartum Supervision of high risk , antepartum Supervision of high risk , antepartum Chief Complaint 20 WEEKS GROWTH 22 WK OB EORDER 26 WK OB/GLUCOSE E-ORDER 28 WK OB 30 wk ob R/OLABOR R/OLABOR 32 wk ob RULE OUT DVT 34 WK OB 36 WK OB Reason for Visit Supervision of high risk , antepartum Supervision of high risk , antepartum Supervision of high risk , antepartum Supervision of high risk , antepartum Supervision of high risk , antepartum Inguinal pain Left inguinal pain Pain in left leg Supervision of high risk , antepartum Supervision of high risk , antepartum Chief Complaint EORDER 26 WK OB/GLUCOSE E-ORDER 28 WK OB 30 wk ob R/OLABOR R/OLABOR 32 wk ob RULE OUT DVT 34 WK OB 36 WK OB 37 WK OB *docs only LEFT INGUINAL PAIN 38 WK OB *docs only 39 WK OB *docs only 40 WK OB *docs only Ok per JV to add in VAGINAL DELIVERY VAGINAL DELIVERY Reason for Visit Supervision of high risk , antepartum Supervision of high risk , antepartum Supervision of high risk , antepartum Supervision of high risk , antepartum Inguinal pain Left inguinal pain Pain in left leg Supervision of high risk , antepartum Supervision of high risk , antepartum Inguinal pain Left inguinal pain Pain in left leg Supervision of high risk , antepartum Inguinal pain Left inguinal pain Pain in left leg Supervision of high risk , antepartum Pain in left leg Supervision of high risk , antepartum Inguinal pain Left inguinal pain Pain in left leg Supervision of high risk , antepartum Maternal fever affecting labor Vaginal delivery Supervision of high risk , antepartum Chief Complaint EORDER 26 WK OB/GLUCOSE E-ORDER 28 WK OB 30 wk ob R/OLABOR R/OLABOR 32 wk ob RULE OUT DVT 34 WK OB 36 WK OB 37 WK OB *docs only LEFT INGUINAL PAIN 38 WK OB *docs only 39 WK OB *docs only 40 WK OB *docs only Ok per JV to add in VAGINAL DELIVERY VAGINAL DELIVERY VAGINAL DELIVERY Reason for Visit Supervision of high risk , antepartum Supervision of high risk , antepartum Supervision of high risk , antepartum Supervision of high risk , antepartum Inguinal pain Left inguinal pain Pain in left leg Supervision of high risk , antepartum Supervision of high risk , antepartum Inguinal pain Left inguinal pain Pain in left leg Supervision of high risk , antepartum Inguinal pain Left inguinal pain Pain in left leg Supervision of high risk , antepartum Pain in left leg Supervision of high risk , antepartum Inguinal pain Left inguinal pain Pain in left leg Supervision of high risk , antepartum Maternal fever affecting labor Vaginal delivery Supervision of high risk , antepartum Advance Directives No Advanced Directives Records Found Advance Directive Response Recorded Date/ Time Living Will No April 19, 2023 8:14pm Power of Egg Buyer No April 19 8:14pm Summary Purpose Family History No Family History Records Found Additional Source Comments Care Teams (unrecognized sec tion and content) Team Status: Inactive Member Role Status Dates Dr. Karrie Roldan DO Attending Provider Activ e Team Status: Inactive Member Role Status Armida Calloway SANITATION INSPECTOR, SANITATION INSPECTOR-C Attending Provider Active Team Status: Inactive Member Role Status Dates Dr. Renee Marshall MD Attending Provider Active Team Status: Inactive Member Role Status Dates Dr. Karrie Roldan DO Attending Provider, Refe rring Provider Active Team Status: Inactive Member Role Status Afshan Perry CNM Attending Provider Active Team Status: Inactive Member Role Status Dates Dr. Renee Marshall MD Attending Provider, Referr ing Provider Active Team Status: Active Member Role Status Dates Dr. Renee Marshall MD Attending Pr ovider, Referring Provider, Other Provider Active Team Status: Active Member Role Status Dr. Rui Starkey MD Attending Provider Active Team Status: Inactive Member Role Status Paloma King CNM Attending Provider Active Team Status: Active Member Role Status Dates Dr. Rui Starkey MD Attending Provider Active Dr. Karrie Roldan DO Referring Provider Activ e Team Status: Active Member Role Status Dates No Primary Care Physician Primary Care Provider Active Team Status: Inactive Member Role Status Dr. Karrie Roldan DO Attending Provider Activ e No Primary Care Physician Primary Care Provider, Refer ring Provider Active Team Status: Inactive Member Role Status No Primary Care Physician Primary Care Provider, Refer ring Provider Active Dr. Karrie Roldan DO Attending Provider Activ e Team Status: Active Member Role Status Dates No Primary Care Physician Primary Care Provider Active Dr. Renee Marshall MD Admit Provid er, Attending Provider, Referring Provider, Other Provider Active Team Status: Inactive Member Role Status Dates No Primary Care Physician Primary Care Provider Active Dr. Karrie Roldan DO Attending Provider Activ e Team Status: Inactive Member Role Status Dates Dr. Renee Marshall MD Attending Provider, Referr ing Provider Active No Primary Care Physician Primary Care Provider Active Team Status: Active Member Role Status Dates No Primary Care Physician Primary Care Provider Active Dr. Renee Marshall MD Admit Provid er, Attending Provider, Referring Provider Active Team Status: Active Member Role Status Dates No Primary Care Physician Primary Care Provider Active Dr. Renee Marshall MD Admit Provid er, Referring Provider, Other Provider Active Afshan Perry CNM Attending Provider Active Team Status: Inactive Member Role Status Dates No Primary Care Physician Primary Care Provider Active Dr. Renee Marshall MD Admit Provid er, Attending Provider, Referring Provider Active Goals (unrecognized section and content) Goals may be documented in a n alternate sectionGoals may be documented in an alternate sectionGoals may be documented in an alternate sectionGoals may be documented in an alternate sectionGoals may be documented in an alternate sectionGoals may be documented in an alternate sectionGoals may be documented in an alternate section INFORMATION SOURCE (unrecogn ized section and content) DATE CREATED AUTHOR 06/14/2024 [facility] DATE CREATED AUTHOR AUTHOR'S ORGANIZ ATION 11/25/2024 [facility] FOR RECORDS PERTAINING TO PATIENTS WHO ARE OR HAVE BEEN ENROLLED IN A CHEMICAL DEPENDENCY/SUBSTANCEABUSE PROGRAM, SOME INFORMATION MAY BE OMITTED. This clinical summary was aggregated from multiple sources. Caution should be exercised in using it in the provision of clinical care. This summary normalizes information from multiple sources, and as a consequence, information in this document may materially change the coding, format and clinical context of patient data. In addition, data may be omitted in some cases. CLINICAL DECISIONS SHOULD BE BASED ON THE PRIMARY CLINICAL RECORDS. [employer] provides no warranty or guarantee of the accuracy or completeness of information in this document.
[2025-08-18 11:21] LABS: HIV Nonreactive (Nonreactive); Hepatitis B Surface Antigen Nonreactive (Nonreactive); Hepatitis C Antibody Nonreactive (Nonreactive); Syphilis Antibodies Nonreactive (Nonreactive)
[2025-08-21 19:08] LABS: Chlamydia By Nucleic Acid AMP Negative (Negative); Gonococcus By Nucleic Acid AMP Negative (Negative)
== END | disposition home or self-care (01) ==
PROVIDERS: Visit Provider Student in an Organized Health Care Education/Training Program
DX: Z34.90 Encounter for supervision of normal pregnancy, unspecified, unspecified trimester (principal)
CPT/HCPCS: 36415; 85025; 86703; 86762; 86780; 86803; 86850; 86900; 86901; 87086; 87088; 87340; 87491; 87591